=== PATIENT | female | born 1955 | race Caucasian/White ===

== ENCOUNTER 2020-09-05 12:16 | Inpatient (IN) | payer MEDICARE ==
[2020-09-05 16:56] LABS: BASO % 0.5 % (0-2.0); EOS % 1.7 % (0-4.5); HEMATOCRIT 39.4 % (32.4-45.2); HEMOGLOBIN 13.3 GM/dL (10.7-15.3); LYMPH % 28.7 % (8-40); MCH 31.3 pg (25.7-33.7); MCHC 33.8 g/dl (32.0-36.0); MEAN CELL VOLUME 92.5 fl (80-96); MEAN PLT VOLUME 10.6 fl (7.5-11.1); MONO % 3.8 % (3.8-10.2); NEUT % 65.3 % (42.8-82.8); PLATELET COUNT 210 K/MM3 (134-434); RBC 4.26 M/mm3 (3.60-5.2); RDW 13.7 % (11.6-15.6); WHITE BLOOD COUNT 10.8 K/mm3 (4.0-10.0)
[2020-09-05 17:18] LABS: CALCIUM 9.8 mg/dL (8.5-10.1)
[2020-09-05 17:19] LABS: ALBUMIN 3.6 g/dl (3.4-5.0); BLOOD UREA NITROGEN 52.4 mg/dL (7-18)
[2020-09-05 17:22] LABS: CREATININE 1.8 mg/dL (0.55-1.3)
[2020-09-05 17:23] LABS: BILIRUBIN,TOTAL 0.3 mg/dL (0.2-1); TOT PROT 9.6 g/dl (6.4-8.2)
[2020-09-05] MEDS ORDERED: LACTATED RINGERS SOLUTION 1000 ML INFUS.BAG IV ONE (19:26)
[2020-09-05 20:04] LABS: EPI CELLS 16 /uL (0-25.1); HYALINE CASTS 3 /uL (0-3.1); URINE APPEARANCE CLOUDY; URINE BACTERIA 105 /uL (0-1359); URINE BILIRUBIN NEGATIVE (NEGATIVE); URINE COLOR YELLOW; URINE GLUCOSE (UA) NEGATIVE (NEGATIVE); URINE KETONE NEGATIVE (NEGATIVE); URINE LEUK ESTERASE 2+ (NEGATIVE); URINE NITRITE NEGATIVE (NEGATIVE); URINE PROTEIN 2+ (NEGATIVE); URINE RBC 14 /uL (0-23.9); URINE UROBILINOGEN 0.2 mg/dL (0.2-1.0); URINE WBC 369 /uL (0-25.8)
[2020-09-06] MEDS ORDERED: CEFTRIAXONE 1 GM in DEXTROSE 5%-WATER - 50 ML IVPB ONE (00:43)
[2020-09-06] MEDS ORDERED: CEFTRIAXONE 1 GM/50 ML BAG ONE ×2 (01:03→09:53)
[2020-09-06 06:51] LABS: BASO % 0.4 % (0-2.0); EOS % 1.6 % (0-4.5); HEMATOCRIT 35.9 % (32.4-45.2); HEMOGLOBIN 12.2 GM/dL (10.7-15.3); LYMPH % 31.3 % (8-40); MCH 31.3 pg (25.7-33.7); MEAN CELL VOLUME 92.1 fl (80-96); MEAN PLT VOLUME 10.1 fl (7.5-11.1); MONO % 4.8 % (3.8-10.2); NEUT % 61.9 % (42.8-82.8); PLATELET COUNT 195 K/MM3 (134-434); RDW 13.7 % (11.6-15.6); WHITE BLOOD COUNT 7.6 K/mm3 (4.0-10.0)
[2020-09-06 07:15] LABS: ALBUMIN 3.1 g/dl (3.4-5.0); BLOOD UREA NITROGEN 46.2 mg/dL (7-18); CALCIUM 9.3 mg/dL (8.5-10.1)
[2020-09-06 07:18] LABS: CREATININE 1.6 mg/dL (0.55-1.3)
[2020-09-06 07:20] LABS: BILIRUBIN,TOTAL 0.4 mg/dL (0.2-1); TOT PROT 8.3 g/dl (6.4-8.2)
[2020-09-06] MEDS ORDERED: HEPARIN NA (PORCINE) 5,000 UNITS/ML 1ML VIAL ONE (09:53)
[2020-09-06] MEDS: HEPARIN NA (PORCINE) 5,000 UNITS/ML 1ML VIAL SQ SCH ×2 (12:00→23:03)
[2020-09-06] MEDS: INSULIN SLIDING SCALE (NOVOLOG) 1 VIAL SQ SCH ×3 (13:13→23:12)
[2020-09-06] MEDS ORDERED: FLU VACCINE (FLULAVAL) PF 60 MCG/0.5 ML SYRINGE 2020-2021 IM ONE (20:45)
[2020-09-06 21:13] VITALS: BMI 40.5
[2020-09-06] MEDS: INSULIN (LEVEMIR) 100 UNITS/ML UNITS SQ SCH (23:13)
[2020-09-07] MEDS ORDERED: INSULIN (NOVOLOG) ASPART 100 UNITS/ML 10ML VIAL ONE (06:30)
[2020-09-07] MEDS: INSULIN SLIDING SCALE (NOVOLOG) 1 VIAL SQ SCH ×4 (06:38→21:41)
[2020-09-07 07:39] LABS: BASO % 0.8 % (0-2.0); EOS % 2.3 % (0-4.5); HEMATOCRIT 36.3 % (32.4-45.2); HEMOGLOBIN 12.2 GM/dL (10.7-15.3); LYMPH % 37.7 % (8-40); MCH 31.2 pg (25.7-33.7); MCHC 33.6 g/dl (32.0-36.0); MEAN CELL VOLUME 92.9 fl (80-96); MEAN PLT VOLUME 10.6 fl (7.5-11.1); MONO % 5.4 % (3.8-10.2); NEUT % 53.8 % (42.8-82.8); PLATELET COUNT 173 K/MM3 (134-434); RBC 3.91 M/mm3 (3.60-5.2); RDW 13.6 % (11.6-15.6); WHITE BLOOD COUNT 6.2 K/mm3 (4.0-10.0)
[2020-09-07 07:56] LABS: CALCIUM 9.3 mg/dL (8.5-10.1)
[2020-09-07 07:57] LABS: ALBUMIN 3.2 g/dl (3.4-5.0); BLOOD UREA NITROGEN 34.6 mg/dL (7-18)
[2020-09-07 08:00] LABS: CREATININE 1.4 mg/dL (0.55-1.3)
[2020-09-07 08:01] LABS: BILIRUBIN,TOTAL 0.6 mg/dL (0.2-1); TOT PROT 8.5 g/dl (6.4-8.2)
[2020-09-07] MEDS ORDERED: FLU VACCINE (FLULAVAL) PF 60 MCG/0.5 ML SYRINGE 2020-2021 IM ONE (10:00)
[2020-09-07] MEDS ORDERED: cefTRIAXone SODIUM 1 GM VIAL ONE (10:04)
[2020-09-07] MEDS ORDERED: DEXTROSE 5%-WATER - 50 ML IVPB ONE (10:04)
[2020-09-07] MEDS ORDERED: INSULIN (LEVEMIR) 100 UNITS/ML UNITS SQ ONE (10:25)
[2020-09-07] MEDS: CEFTRIAXONE 1 GM in DEXTROSE 5%-WATER - 50 ML IVPB SCH (10:51)
[2020-09-07] MEDS: INSULIN (LEVEMIR) 100 UNITS/ML UNITS SQ SCH ×2 (10:51→21:44)
[2020-09-07] MEDS: COLLAGENASE CLOSTRIDIUM HIST. 30 GRAMS TUBE TP SCH (10:52)
[2020-09-07] MEDS: HEPARIN NA (PORCINE) 5,000 UNITS/ML 1ML VIAL SQ SCH ×2 (10:52→21:42)
[2020-09-08] MEDS: INSULIN SLIDING SCALE (NOVOLOG) 1 VIAL SQ SCH ×4 (06:09→22:11)
[2020-09-08] MEDS ORDERED: DEXTROSE 5%-WATER - 50 ML IVPB ONE (09:41)
[2020-09-08] MEDS ORDERED: cefTRIAXone SODIUM 1 GM VIAL ONE (09:41)
[2020-09-08] MEDS: CEFTRIAXONE 1 GM in DEXTROSE 5%-WATER - 50 ML IVPB SCH (10:20)
[2020-09-08] MEDS: INSULIN (LEVEMIR) 100 UNITS/ML UNITS SQ SCH ×2 (10:21→22:14)
[2020-09-08] MEDS: HEPARIN NA (PORCINE) 5,000 UNITS/ML 1ML VIAL SQ SCH ×2 (10:21→22:11)
[2020-09-08] MEDS ORDERED: INSULIN (NOVOLOG) ASPART 100 UNITS/ML 10ML VIAL SQ ONE (12:45)
[2020-09-08] MEDS ORDERED: MINERAL OIL ENEMA 133 ML ENEMA RC ONE (14:30)
[2020-09-08] MEDS: COLLAGENASE CLOSTRIDIUM HIST. 30 GRAMS TUBE TP SCH (14:43)
[2020-09-08] MEDS ORDERED: LACTULOSE 20 GM/30 ML UDC (FOR ORAL USE ONLY) PO ONE (15:48)
[2020-09-08] MEDS: ACETAMINOPHEN 325 MG TABLET (FP) PO PRN (22:10)
[2020-09-08] MEDS: DOCUSATE SODIUM 100 MG CAPSULE (FP) PO SCH (22:10)
[2020-09-09] MEDS: INSULIN SLIDING SCALE (NOVOLOG) 1 VIAL SQ SCH ×5 (06:09→22:46)
[2020-09-09] MEDS: DOCUSATE SODIUM 100 MG CAPSULE (FP) PO SCH ×4 (06:10→22:48)
[2020-09-09 07:45] LABS: INR 1.03 (0.83-1.09); PROTHROMBIN TIME (PATIENT) 12.5 SEC (9.7-13.0)
[2020-09-09 08:25] LABS: ALBUMIN 3.2 g/dl (3.4-5.0); BLOOD UREA NITROGEN 31.6 mg/dL (7-18); CALCIUM 9.4 mg/dL (8.5-10.1)
[2020-09-09 08:29] LABS: BILIRUBIN,TOTAL 0.6 mg/dL (0.2-1); CREATININE 1.4 mg/dL (0.55-1.3); TOT PROT 8.4 g/dl (6.4-8.2)
[2020-09-09] MEDS: HEPARIN NA (PORCINE) 5,000 UNITS/ML 1ML VIAL SQ SCH ×2 (10:00→22:48)
[2020-09-09] MEDS: INSULIN (LEVEMIR) 100 UNITS/ML UNITS SQ SCH ×2 (10:00→22:47)
[2020-09-09] MEDS: COLLAGENASE CLOSTRIDIUM HIST. 30 GRAMS TUBE TP SCH (10:00)
[2020-09-09] MEDS: ACETAMINOPHEN 325 MG TABLET (FP) PO PRN ×2 (10:00→18:47)
[2020-09-09] MEDS ORDERED: MINERAL OIL ENEMA 133 ML ENEMA RC ONE (13:29)
[2020-09-09] MEDS ORDERED: MINERAL OIL ENEMA 133 ML ENEMA PR ONE (16:37)
[2020-09-09] MEDS ORDERED: LACTULOSE 20 GM/30 ML UDC (FOR ORAL USE ONLY) PO ONE (16:37)
[2020-09-09] MEDS: SENNOSIDES 8.6MG TABLET (FP) PO SCH (22:48)
[2020-09-10] MEDS: ACETAMINOPHEN 325 MG TABLET (FP) PO PRN (05:51)
[2020-09-10] MEDS: DOCUSATE SODIUM 100 MG CAPSULE (FP) PO SCH ×3 (05:51→21:01)
[2020-09-10] MEDS: INSULIN SLIDING SCALE (NOVOLOG) 1 VIAL SQ SCH ×4 (06:48→21:02)
[2020-09-10] MEDS ORDERED: INSULIN (NOVOLOG) ASPART 100 UNITS/ML 10ML VIAL ONE ×2 (06:54→11:45)
[2020-09-10] MEDS: INSULIN (LEVEMIR) 100 UNITS/ML UNITS SQ SCH ×2 (10:04→21:02)
[2020-09-10] MEDS: HEPARIN NA (PORCINE) 5,000 UNITS/ML 1ML VIAL SQ SCH ×2 (10:04→21:01)
[2020-09-10] MEDS: COLLAGENASE CLOSTRIDIUM HIST. 30 GRAMS TUBE TP SCH (18:07)
[2020-09-10] MEDS: SENNOSIDES 8.6MG TABLET (FP) PO SCH (21:01)
[2020-09-11] MEDS: INSULIN SLIDING SCALE (NOVOLOG) 1 VIAL SQ SCH ×4 (06:19→21:00)
[2020-09-11] MEDS: DOCUSATE SODIUM 100 MG CAPSULE (FP) PO SCH ×3 (06:19→21:00)
[2020-09-11 08:14] LABS: HEMATOCRIT 37.7 % (32.4-45.2); HEMOGLOBIN 12.5 GM/dL (10.7-15.3); MCHC 33.3 g/dl (32.0-36.0); MEAN PLT VOLUME 10.7 fl (7.5-11.1); PLATELET COUNT 180 K/MM3 (134-434); RBC 4.05 M/mm3 (3.60-5.2); WHITE BLOOD COUNT 7.6 K/mm3 (4.0-10.0)
[2020-09-11 08:16] LABS: ALBUMIN 3.1 g/dl (3.4-5.0); BLOOD UREA NITROGEN 39.4 mg/dL (7-18); CALCIUM 9.3 mg/dL (8.5-10.1)
[2020-09-11 08:19] LABS: CREATININE 1.8 mg/dL (0.55-1.3)
[2020-09-11 08:20] LABS: BILIRUBIN,TOTAL 0.6 mg/dL (0.2-1); TOT PROT 7.8 g/dl (6.4-8.2)
[2020-09-11] MEDS ORDERED: PT OWN MED DRAWER 7, Y5N ONE (09:29)
[2020-09-11] MEDS: INSULIN (LEVEMIR) 100 UNITS/ML UNITS SQ SCH ×2 (10:05→21:00)
[2020-09-11] MEDS: HEPARIN NA (PORCINE) 5,000 UNITS/ML 1ML VIAL SQ SCH ×2 (10:05→21:00)
[2020-09-11] MEDS: COLLAGENASE CLOSTRIDIUM HIST. 30 GRAMS TUBE TP SCH (11:43)
[2020-09-11] MEDS: SENNOSIDES 8.6MG TABLET (FP) PO SCH (21:00)
[2020-09-12] MEDS: DOCUSATE SODIUM 100 MG CAPSULE (FP) PO SCH ×3 (05:26→21:26)
[2020-09-12] MEDS: INSULIN SLIDING SCALE (NOVOLOG) 1 VIAL SQ SCH ×4 (06:01→21:28)
[2020-09-12 07:42] LABS: HEMATOCRIT 37.1 % (32.4-45.2); HEMOGLOBIN 12.6 GM/dL (10.7-15.3); MCH 31.4 pg (25.7-33.7); MCHC 33.8 g/dl (32.0-36.0); MEAN CELL VOLUME 92.9 fl (80-96); RDW 14.1 % (11.6-15.6); WHITE BLOOD COUNT 9.1 K/mm3 (4.0-10.0)
[2020-09-12 08:15] LABS: CALCIUM 9.4 mg/dL (8.5-10.1)
[2020-09-12 08:17] LABS: ALBUMIN 3.2 g/dl (3.4-5.0); BLOOD UREA NITROGEN 45.1 mg/dL (7-18)
[2020-09-12 08:21] LABS: BILIRUBIN,TOTAL 0.9 mg/dL (0.2-1); TOT PROT 8.3 g/dl (6.4-8.2)
[2020-09-12] MEDS ORDERED: INSULIN (NOVOLOG) ASPART 100 UNITS/ML 10ML VIAL ONE (08:21)
[2020-09-12] MEDS: HEPARIN NA (PORCINE) 5,000 UNITS/ML 1ML VIAL SQ SCH ×2 (09:04→21:27)
[2020-09-12] MEDS: COLLAGENASE CLOSTRIDIUM HIST. 30 GRAMS TUBE TP SCH (09:07)
[2020-09-12] MEDS: INSULIN (LEVEMIR) 100 UNITS/ML UNITS SQ SCH ×2 (09:07→21:27)
[2020-09-12 09:51] LABS: MEAN PLT VOLUME 10.8 fl (7.5-11.1); PLATELET COUNT 196 K/MM3 (134-434)
[2020-09-12] MEDS ORDERED: LISINOPRIL 5 MG TABLET PO SCH (10:00)
[2020-09-12] MEDS ORDERED: CEFTRIAXONE 2 GM-D5W BAG 2 GM/50 ML BAG IVPB SCH (16:15)
[2020-09-12] MEDS ORDERED: CEFTRIAXONE 2 GM in DEXTROSE 5%-WATER 2 GM/100 ML BAG IVPB SCH (16:56)
[2020-09-12] MEDS ORDERED: DEXTROSE 5%-WATER 100 ML IVPB ONE (16:59)
[2020-09-12] MEDS: CEFTRIAXONE 2 GM in DEXTROSE 5%-WATER 2 GM/100 ML BAG IVPB SCH (17:06)
[2020-09-12] MEDS: SENNOSIDES 8.6MG TABLET (FP) PO SCH (21:26)
[2020-09-13] MEDS: DOCUSATE SODIUM 100 MG CAPSULE (FP) PO SCH ×2 (06:19→13:44)
[2020-09-13] MEDS: INSULIN SLIDING SCALE (NOVOLOG) 1 VIAL SQ SCH ×3 (06:19→16:33)
[2020-09-13 07:55] LABS: ALBUMIN 2.9 g/dl (3.4-5.0); BLOOD UREA NITROGEN 42.1 mg/dL (7-18); CALCIUM 9.3 mg/dL (8.5-10.1)
[2020-09-13 07:58] LABS: CREATININE 1.9 mg/dL (0.55-1.3)
[2020-09-13 08:00] LABS: BILIRUBIN,TOTAL 0.3 mg/dL (0.2-1); TOT PROT 7.9 g/dl (6.4-8.2)
[2020-09-13] MEDS ORDERED: DEXTROSE 5%-WATER 100 ML IVPB ONE (08:23)
[2020-09-13] MEDS ORDERED: INSULIN (NOVOLOG) ASPART 100 UNITS/ML 10ML VIAL ONE (08:30)
[2020-09-13] MEDS: CEFTRIAXONE 2 GM in DEXTROSE 5%-WATER 2 GM/100 ML BAG IVPB SCH (09:00)
[2020-09-13] MEDS: COLLAGENASE CLOSTRIDIUM HIST. 30 GRAMS TUBE TP SCH (09:01)
[2020-09-13] MEDS: INSULIN (LEVEMIR) 100 UNITS/ML UNITS SQ SCH (09:01)
[2020-09-13] MEDS: HEPARIN NA (PORCINE) 5,000 UNITS/ML 1ML VIAL SQ SCH (09:02)
[2020-09-13 13:24] VITALS: BP 104/66; PULSE 70; TEMP 97.3
== END 2020-09-13 18:17 | disposition home or self-care (01) | DRG 344 ==
LOC: JER 12:16 → JERBED 19:58 → J7W 09-06 18:16
PROVIDERS: ADMIT Internal Medicine; ATTEND Family Medicine
PROC: 02HV33Z Insertion of Infusion Device into Superior Vena Cava, Percutaneous Approach (ICD-10-PCS; principal; 2020-09-13)
PROC: B518ZZA Fluoroscopy of Superior Vena Cava, Guidance (ICD-10-PCS; 2020-09-13)
DX: E11.69 Type 2 diabetes mellitus with other specified complication (principal); E11.621 Type 2 diabetes mellitus with foot ulcer; L97.528 Non-pressure chronic ulcer of other part of left foot with other specified severity; L97.518 Non-pressure chronic ulcer of other part of right foot with other specified severity; N39.0 Urinary tract infection, site not specified; E11.22 Type 2 diabetes mellitus with diabetic chronic kidney disease; N18.9 Chronic kidney disease, unspecified; I12.9 Hypertensive chronic kidney disease with stage 1 through stage 4 chronic kidney disease, or unspecified chronic kidney disease; N17.9 Acute kidney failure, unspecified; E11.610 Type 2 diabetes mellitus with diabetic neuropathic arthropathy; E66.01 Morbid (severe) obesity due to excess calories; Z68.41 Body mass index [BMI] 40.0-44.9, adult; L08.9 Local infection of the skin and subcutaneous tissue, unspecified; M86.8X7 Other osteomyelitis, ankle and foot; B95.2 Enterococcus as the cause of diseases classified elsewhere; Z89.422 Acquired absence of other left toe(s); Z89.421 Acquired absence of other right toe(s); K59.00 Constipation, unspecified; L03.90 Cellulitis, unspecified; M86.171 Other acute osteomyelitis, right ankle and foot
CPT/HCPCS: 36415; 36558; 71045-TC-FY; 73630-TC-LT; 73630-TC-RT-FY; 73718-TC-LT; 73718-TC-RT; 76775-TC; 80048; 80053; 81003; 82962; 83036; 84155; 84165; 85025; 85027; 85610; 85651; 86038; 86140; 86704; 86803; 87040; 87086; 87186; 87340; 93970-TC; 97116-GP; 97161-GP; 99285-25; C9803; G0008; J1644; Q2036; U0003

== ENCOUNTER 2020-09-14 11:47 | Day surgery (SDC) | payer SELFPAY ==
[2020-09-14] MEDS ORDERED: CEFTRIAXONE 2 GM in DEXTROSE 5%-WATER 100 ML IVPB ONE (12:15)
[2020-09-14] MEDS ORDERED: DEXTROSE 5%-WATER 100 ML IVPB ONE (12:22)
[2020-09-14 13:18] VITALS: BP 140/70; PULSE 70; TEMP 97.8
== END 2020-09-14 14:15 | disposition home or self-care (01) ==
LOC: JINFUSION 11:47 → J7W 11:56 → JINFUSION 14:15
PROVIDERS: ATTEND Internal Medicine
DX: E11.621 Type 2 diabetes mellitus with foot ulcer (principal); L03.90 Cellulitis, unspecified; L97.509 Non-pressure chronic ulcer of other part of unspecified foot with unspecified severity
CPT/HCPCS: 96365

== ENCOUNTER 2020-09-15 11:08 | Day surgery (SDC) | payer SELFPAY ==
[~2020-09-15 11:08] MED LIST: CEFTRIAXONE 2 GM in DEXTROSE 5%-WATER 100 ML IVPB ONE
[2020-09-15] MEDS ORDERED: DEXTROSE 5%-WATER 100 ML IVPB ONE (11:28)
[2020-09-15 11:48] VITALS: TEMP 98.2
[2020-09-15 11:59] VITALS: BP 126/60; PULSE 78
== END 2020-09-15 12:37 | disposition home or self-care (01) ==
LOC: JINFUSION 11:08 → J7W 11:08 → JINFUSION 12:37
PROVIDERS: ATTEND Internal Medicine
DX: E11.621 Type 2 diabetes mellitus with foot ulcer (principal); L03.90 Cellulitis, unspecified; L97.509 Non-pressure chronic ulcer of other part of unspecified foot with unspecified severity
CPT/HCPCS: 96365

== ENCOUNTER 2020-09-16 11:24 | Day surgery (SDC) | payer SELFPAY ==
[2020-09-16] MEDS ORDERED: DEXTROSE 5%-WATER 100 ML IVPB ONE (12:01)
[2020-09-16 17:01] VITALS: BP 109/60; PULSE 75; TEMP 97.6
== END 2020-09-16 12:55 | disposition home or self-care (01) ==
LOC: J7W 11:24 → JINFUSION 11:24
PROVIDERS: ATTEND Internal Medicine
DX: E11.621 Type 2 diabetes mellitus with foot ulcer (principal); L03.90 Cellulitis, unspecified; L97.509 Non-pressure chronic ulcer of other part of unspecified foot with unspecified severity
CPT/HCPCS: 96365

== ENCOUNTER 2020-09-17 11:04 | Day surgery (SDC) | payer SELFPAY ==
[2020-09-17] MEDS ORDERED: DEXTROSE 5%-WATER 100 ML IVPB ONE (11:37)
[2020-09-17] MEDS ORDERED: CEFTRIAXONE 2 GM in DEXTROSE 5%-WATER 100 ML IVPB ONE (12:00)
[2020-09-17 12:12] VITALS: BP 111/60; PULSE 71; TEMP 98
== END 2020-09-17 16:44 | disposition home or self-care (01) ==
LOC: J7W 11:04 → JINFUSION 11:04
PROVIDERS: ATTEND Internal Medicine
DX: E11.621 Type 2 diabetes mellitus with foot ulcer (principal); L03.90 Cellulitis, unspecified; L97.509 Non-pressure chronic ulcer of other part of unspecified foot with unspecified severity
CPT/HCPCS: 96365

== ENCOUNTER 2020-09-18 11:14 | Day surgery (SDC) | payer SELFPAY ==
[2020-09-18 11:28] VITALS: PULSE 74; TEMP 97.7
[2020-09-18] MEDS ORDERED: DEXTROSE 5%-WATER 100 ML IVPB ONE (11:29)
[2020-09-18] MEDS ORDERED: CEFTRIAXONE 2 GM in DEXTROSE 5%-WATER 100 ML IVPB ONE (11:30)
[2020-09-18 12:12] VITALS: BP 143/76
== END 2020-09-18 12:14 | disposition home or self-care (01) ==
LOC: JINFUSION 11:14 → J7W 11:15 → JINFUSION 12:14
PROVIDERS: ATTEND Internal Medicine
DX: E11.621 Type 2 diabetes mellitus with foot ulcer (principal); L03.90 Cellulitis, unspecified; L97.509 Non-pressure chronic ulcer of other part of unspecified foot with unspecified severity
CPT/HCPCS: 96365

== ENCOUNTER 2020-09-19 11:06 | Day surgery (SDC) | payer SELFPAY ==
[2020-09-19] MEDS ORDERED: DEXTROSE 5%-WATER 100 ML IVPB ONE (11:12)
[2020-09-19 15:04] VITALS: BP 156/78; PULSE 80; TEMP 98.1
== END 2020-09-19 12:00 | disposition home or self-care (01) ==
LOC: J7W 11:06 → JINFUSION 11:06
PROVIDERS: ATTEND Internal Medicine
DX: E11.621 Type 2 diabetes mellitus with foot ulcer (principal); L03.90 Cellulitis, unspecified; L97.509 Non-pressure chronic ulcer of other part of unspecified foot with unspecified severity
CPT/HCPCS: 96365

== ENCOUNTER 2020-09-20 11:27 | Day surgery (SDC) | payer SELFPAY ==
[2020-09-20] MEDS ORDERED: DEXTROSE 5%-WATER 100 ML IVPB ONE (11:36)
[2020-09-20 12:17] LABS: HEMATOCRIT 35.4 % (32.4-45.2); HEMOGLOBIN 12.1 GM/dL (10.7-15.3); MCH 31.8 pg (25.7-33.7); MCHC 34.3 g/dl (32.0-36.0); MEAN CELL VOLUME 92.8 fl (80-96); MEAN PLT VOLUME 10.1 fl (7.5-11.1); PLATELET COUNT 198 K/MM3 (134-434); RBC 3.82 M/mm3 (3.60-5.2); RDW 14.1 % (11.6-15.6); WHITE BLOOD COUNT 8.5 K/mm3 (4.0-10.0)
[2020-09-20 13:02] VITALS: BP 140/71; PULSE 80; TEMP 98
[2020-09-20 13:11] LABS: POTASSIUM 5.1 mmol/L (3.5-5.1)
[2020-09-20 13:13] LABS: ALBUMIN 3.4 g/dl (3.4-5.0); BLOOD UREA NITROGEN 24.1 mg/dL (7-18); CALCIUM 9.1 mg/dL (8.5-10.1)
[2020-09-20 13:16] LABS: CREATININE 1.4 mg/dL (0.55-1.3)
[2020-09-20 13:18] LABS: BILIRUBIN,TOTAL 0.3 mg/dL (0.2-1); TOT PROT 8.5 g/dl (6.4-8.2)
== END 2020-09-20 13:35 | disposition home or self-care (01) ==
LOC: JINFUSION 11:27 → J7W 11:27 → JINFUSION 13:35
PROVIDERS: ATTEND Internal Medicine
DX: E11.621 Type 2 diabetes mellitus with foot ulcer (principal); L03.90 Cellulitis, unspecified; L97.509 Non-pressure chronic ulcer of other part of unspecified foot with unspecified severity
CPT/HCPCS: 36415; 80053; 85027; 96365

== ENCOUNTER 2020-09-21 10:59 | Day surgery (SDC) | payer SELFPAY ==
[2020-09-21] MEDS ORDERED: CEFTRIAXONE 2 GM in DEXTROSE 5%-WATER 100 ML IVPB ONE (11:30)
[2020-09-21] MEDS ORDERED: DEXTROSE 5%-WATER 100 ML IVPB ONE (11:32)
== END 2020-09-21 13:22 | disposition home or self-care (01) ==
LOC: JINFUSION 10:59 → J7W 10:59 → JINFUSION 13:22
PROVIDERS: ATTEND Internal Medicine
DX: E11.621 Type 2 diabetes mellitus with foot ulcer (principal); L03.90 Cellulitis, unspecified; L97.509 Non-pressure chronic ulcer of other part of unspecified foot with unspecified severity
CPT/HCPCS: 96365

== ENCOUNTER 2020-09-21 13:13 | Emergency (ER) | payer SELFPAY ==
[2020-09-21 13:21] VITALS: TEMP 97.6; BMI 37.5
[2020-09-21] MEDS ORDERED: CEFTRIAXONE 1 GM in DEXTROSE 5%-WATER - 50 ML IVPB ONE (13:36)
[2020-09-21] MEDS ORDERED: CEFTRIAXONE 1 GM/50 ML BAG ONE (13:42)
[2020-09-21] MEDS ORDERED: ALTEPLASE 2 MG VIAL IVPUSH ONE (13:42)
[2020-09-21] MEDS ORDERED: ALTEPLASE 2 MG VIAL ONE (14:14)
[2020-09-21 16:54] VITALS: BP 135/75; PULSE 80
== END 2020-09-21 16:54 | disposition home or self-care (01) ==
LOC: JER 13:13
DX: T82.49XA Other complication of vascular dialysis catheter, initial encounter (principal)
CPT/HCPCS: 36581; 99284-25

== ENCOUNTER 2020-09-22 11:17 | Day surgery (SDC) | payer SELFPAY ==
[2020-09-22] MEDS ORDERED: DEXTROSE 5%-WATER 100 ML IVPB ONE (11:24)
[2020-09-22] MEDS ORDERED: CEFTRIAXONE 2 GM in DEXTROSE 5%-WATER 100 ML IVPB ONE (11:45)
[2020-09-22 12:27] VITALS: BP 122/72; PULSE 73; TEMP 98.3
== END 2020-09-22 12:00 | disposition home or self-care (01) ==
LOC: JINFUSION 11:17 → J7W 11:17 → JINFUSION 12:00
PROVIDERS: ATTEND Internal Medicine
DX: E11.621 Type 2 diabetes mellitus with foot ulcer (principal); L03.90 Cellulitis, unspecified; L97.509 Non-pressure chronic ulcer of other part of unspecified foot with unspecified severity
CPT/HCPCS: 96365

== ENCOUNTER 2020-09-23 11:16 | Day surgery (SDC) | payer SELFPAY ==
[2020-09-23] MEDS ORDERED: DEXTROSE 5%-WATER 100 ML IVPB ONE (11:43)
[2020-09-23] MEDS ORDERED: CEFTRIAXONE 2 GM in DEXTROSE 5%-WATER 100 ML IVPB ONE (11:45)
[2020-09-23 11:52] VITALS: BP 121/64; PULSE 76; TEMP 98.2
== END 2020-09-23 12:15 | disposition home or self-care (01) ==
LOC: JINFUSION 11:16 → J7W 11:17 → JINFUSION 12:15
PROVIDERS: ATTEND Internal Medicine
DX: E11.621 Type 2 diabetes mellitus with foot ulcer (principal); L03.90 Cellulitis, unspecified; L97.509 Non-pressure chronic ulcer of other part of unspecified foot with unspecified severity
CPT/HCPCS: 96365

== ENCOUNTER 2020-09-24 11:00 | Day surgery (SDC) | payer SELFPAY ==
[2020-09-24] MEDS ORDERED: CEFTRIAXONE 2 GM in DEXTROSE 5%-WATER 100 ML IVPB ONE (11:30)
[2020-09-24] MEDS ORDERED: DEXTROSE 5%-WATER 100 ML IVPB ONE (11:32)
[2020-09-24 12:25] VITALS: BP 140/79; PULSE 78; TEMP 98
== END 2020-09-24 12:29 | disposition home or self-care (01) ==
LOC: JINFUSION 11:00 → J7W 11:00 → JINFUSION 12:29
PROVIDERS: ATTEND Internal Medicine
DX: E11.621 Type 2 diabetes mellitus with foot ulcer (principal); L03.90 Cellulitis, unspecified; L97.509 Non-pressure chronic ulcer of other part of unspecified foot with unspecified severity
CPT/HCPCS: 96365

== ENCOUNTER 2020-09-25 11:26 | Day surgery (SDC) | payer SELFPAY ==
[2020-09-25] MEDS ORDERED: DEXTROSE 5%-WATER 100 ML IVPB ONE (11:59)
[2020-09-25] MEDS ORDERED: CEFTRIAXONE 2 GM in DEXTROSE 5%-WATER 100 ML IVPB ONE (12:00)
[2020-09-25 12:10] VITALS: BP 127/71; PULSE 78; TEMP 97.6
== END 2020-09-25 12:45 | disposition home or self-care (01) ==
LOC: JINFUSION 11:26 → J7W 11:45 → JINFUSION 12:45
PROVIDERS: ATTEND Internal Medicine
DX: E11.621 Type 2 diabetes mellitus with foot ulcer (principal); L03.90 Cellulitis, unspecified; L97.509 Non-pressure chronic ulcer of other part of unspecified foot with unspecified severity
CPT/HCPCS: 96365

== ENCOUNTER 2020-09-26 11:28 | Day surgery (SDC) | payer SELFPAY ==
[2020-09-26] MEDS ORDERED: DEXTROSE 5%-WATER 100 ML IVPB ONE (11:38)
[2020-09-26 12:14] VITALS: BP 118/51; PULSE 87; TEMP 97.6
== END 2020-09-26 12:15 | disposition home or self-care (01) ==
LOC: JINFUSION 11:28 → J7W 11:29 → JINFUSION 12:15
PROVIDERS: ATTEND Internal Medicine
DX: E11.621 Type 2 diabetes mellitus with foot ulcer (principal); L03.90 Cellulitis, unspecified; L97.509 Non-pressure chronic ulcer of other part of unspecified foot with unspecified severity
CPT/HCPCS: 96365

== ENCOUNTER 2020-09-27 11:07 | Day surgery (SDC) | payer SELFPAY ==
[2020-09-27] MEDS ORDERED: DEXTROSE 5%-WATER 100 ML IVPB ONE (11:39)
[2020-09-27 11:52] VITALS: BP 120/69; PULSE 79; TEMP 98.3
[2020-09-27 12:05] LABS: HEMATOCRIT 34.8 % (32.4-45.2); HEMOGLOBIN 11.5 GM/dL (10.7-15.3); MCH 31.2 pg (25.7-33.7); MCHC 33.1 g/dl (32.0-36.0); MEAN CELL VOLUME 94.3 fl (80-96); MEAN PLT VOLUME 10.3 fl (7.5-11.1); PLATELET COUNT 164 K/MM3 (134-434); RDW 14.2 % (11.6-15.6); WHITE BLOOD COUNT 6.6 K/mm3 (4.0-10.0)
[2020-09-27 12:28] LABS: POTASSIUM 4.9 mmol/L (3.5-5.1)
[2020-09-27 12:30] LABS: ALBUMIN 3.5 g/dl (3.4-5.0); CALCIUM 9.3 mg/dL (8.5-10.1)
[2020-09-27 12:31] LABS: BLOOD UREA NITROGEN 39.8 mg/dL (7-18)
[2020-09-27 12:34] LABS: CREATININE 1.9 mg/dL (0.55-1.3)
[2020-09-27 12:35] LABS: BILIRUBIN,TOTAL 0.4 mg/dL (0.2-1); TOT PROT 8.6 g/dl (6.4-8.2)
== END 2020-09-27 12:49 | disposition home or self-care (01) ==
LOC: JINFUSION 11:07 → J7W 11:07 → JINFUSION 12:49
PROVIDERS: ATTEND Internal Medicine
DX: E11.621 Type 2 diabetes mellitus with foot ulcer (principal); L03.90 Cellulitis, unspecified; L97.509 Non-pressure chronic ulcer of other part of unspecified foot with unspecified severity
CPT/HCPCS: 36415; 80053; 85027; 96365

== ENCOUNTER 2020-09-28 11:33 | Day surgery (SDC) | payer SELFPAY ==
[2020-09-28] MEDS ORDERED: DEXTROSE 5%-WATER 100 ML IVPB ONE (11:43)
[2020-09-28 11:59] VITALS: TEMP 97.9
[2020-09-28 12:47] VITALS: BP 138/76; PULSE 82
== END 2020-09-28 12:48 | disposition home or self-care (01) ==
LOC: J7W 11:33 → JINFUSION 11:33
PROVIDERS: ATTEND Internal Medicine
DX: E11.621 Type 2 diabetes mellitus with foot ulcer (principal); L03.90 Cellulitis, unspecified; L97.509 Non-pressure chronic ulcer of other part of unspecified foot with unspecified severity
CPT/HCPCS: 96365

== ENCOUNTER 2020-09-29 10:58 | Day surgery (SDC) | payer SELFPAY ==
[2020-09-29 11:57] VITALS: TEMP 97.6
[2020-09-29 12:39] VITALS: BP 148/76; PULSE 82
== END 2020-09-29 12:40 | disposition home or self-care (01) ==
LOC: JINFUSION 10:58 → J7W 10:59 → JINFUSION 12:40
PROVIDERS: ATTEND Internal Medicine
CPT/HCPCS: 96365

== ENCOUNTER 2020-09-30 11:29 | Day surgery (SDC) | payer SELFPAY ==
[2020-09-30] MEDS ORDERED: DEXTROSE 5%-WATER 100 ML IVPB ONE (11:45)
[2020-09-30 12:27] VITALS: BP 140/85; PULSE 78; TEMP 97.6
== END 2020-09-30 12:55 | disposition home or self-care (01) ==
LOC: JINFUSION 11:29 → J7W 11:30 → JINFUSION 11:30 → J7W 12:57
PROVIDERS: ATTEND Internal Medicine
DX: E11.621 Type 2 diabetes mellitus with foot ulcer (principal); L97.509 Non-pressure chronic ulcer of other part of unspecified foot with unspecified severity
CPT/HCPCS: 96365

== ENCOUNTER 2020-10-01 11:26 | Day surgery (SDC) | payer SELFPAY ==
[2020-10-01] MEDS ORDERED: CEFTRIAXONE 2 GM in DEXTROSE 5%-WATER 100 ML IVPB ONE (12:00)
[2020-10-01] MEDS ORDERED: DEXTROSE 5%-WATER 100 ML IVPB ONE (12:09)
[2020-10-01 14:00] VITALS: BP 137/72; PULSE 77; TEMP 97.6
== END 2020-10-01 14:11 | disposition home or self-care (01) ==
LOC: J7W 11:26 → JINFUSION 11:26
PROVIDERS: ATTEND Internal Medicine
DX: E11.621 Type 2 diabetes mellitus with foot ulcer (principal); L97.509 Non-pressure chronic ulcer of other part of unspecified foot with unspecified severity
CPT/HCPCS: 96365

== ENCOUNTER 2020-10-02 11:36 | Day surgery (SDC) | payer SELFPAY ==
[2020-10-02] MEDS ORDERED: DEXTROSE 5%-WATER 100 ML IVPB ONE (11:51)
[2020-10-02] MEDS ORDERED: CEFTRIAXONE 2 GM in DEXTROSE 5%-WATER 100 ML IVPB ONE (12:15)
[2020-10-02 12:53] VITALS: BP 124/70; PULSE 77; TEMP 98.1
== END 2020-10-02 12:45 | disposition home or self-care (01) ==
LOC: JINFUSION 11:36 → J7W 11:36 → JINFUSION 12:45
PROVIDERS: ATTEND Internal Medicine
DX: E11.621 Type 2 diabetes mellitus with foot ulcer (principal)
CPT/HCPCS: 96365

== ENCOUNTER 2020-10-03 11:09 | Day surgery (SDC) | payer SELFPAY ==
[2020-10-03] MEDS ORDERED: DEXTROSE 5%-WATER 100 ML IVPB ONE (11:11)
[2020-10-03 11:59] VITALS: BP 129/67; PULSE 80; TEMP 98.1
== END 2020-10-03 15:30 | disposition home or self-care (01) ==
LOC: JINFUSION 11:09 → J7W 11:09 → JINFUSION 15:30
PROVIDERS: ATTEND Internal Medicine
DX: E11.621 Type 2 diabetes mellitus with foot ulcer (principal); L97.509 Non-pressure chronic ulcer of other part of unspecified foot with unspecified severity
CPT/HCPCS: 96365

== ENCOUNTER 2020-10-04 09:25 | Day surgery (SDC) | payer SELFPAY ==
[2020-10-04] MEDS ORDERED: CEFTRIAXONE 2 GM in DEXTROSE 5%-WATER 100 ML IVPB ONE (09:30)
[2020-10-04] MEDS ORDERED: DEXTROSE 5%-WATER 100 ML IVPB ONE (12:41)
[2020-10-04 14:25] LABS: CALCIUM 9.6 mg/dL (8.5-10.1)
[2020-10-04 14:26] LABS: ALBUMIN 3.3 g/dl (3.4-5.0)
[2020-10-04 14:29] LABS: CREATININE 1.4 mg/dL (0.55-1.3)
[2020-10-04 14:31] LABS: BILIRUBIN,TOTAL 0.5 mg/dL (0.2-1); TOT PROT 8.5 g/dl (6.4-8.2)
[2020-10-04 15:19] LABS: HEMATOCRIT 34.8 % (32.4-45.2); HEMOGLOBIN 11.7 GM/dL (10.7-15.3); MCH 31.6 pg (25.7-33.7); MCHC 33.7 g/dl (32.0-36.0); MEAN CELL VOLUME 93.7 fl (80-96); MEAN PLT VOLUME 10.1 fl (7.5-11.1); PLATELET COUNT 195 K/MM3 (134-434); RBC 3.71 M/mm3 (3.60-5.2); RDW 14.3 % (11.6-15.6); WHITE BLOOD COUNT 7.5 K/mm3 (4.0-10.0)
[2020-10-04 15:36] VITALS: BP 134/78; PULSE 80; TEMP 98
== END 2020-10-04 13:30 | disposition home or self-care (01) ==
LOC: JINFUSION 09:25 → J7W 11:47 → JINFUSION 13:30
PROVIDERS: ATTEND Internal Medicine
DX: E11.621 Type 2 diabetes mellitus with foot ulcer (principal); L97.509 Non-pressure chronic ulcer of other part of unspecified foot with unspecified severity
CPT/HCPCS: 36415; 80053; 85027; 96365

== ENCOUNTER 2020-10-05 11:47 | Day surgery (SDC) | payer SELFPAY ==
[2020-10-05] MEDS ORDERED: DEXTROSE 5%-WATER 100 ML IVPB ONE (11:54)
[2020-10-05 12:05] VITALS: TEMP 98
[2020-10-05 14:04] VITALS: BP 127/86; PULSE 87
== END 2020-10-05 14:04 | disposition home or self-care (01) ==
LOC: J7W 11:47 → JINFUSION 11:47
PROVIDERS: ATTEND Internal Medicine
CPT/HCPCS: 96365

== ENCOUNTER 2020-10-06 11:43 | Day surgery (SDC) | payer SELFPAY ==
[2020-10-06] MEDS ORDERED: DEXTROSE 5%-WATER 100 ML IVPB ONE (11:47)
[2020-10-06 11:57] VITALS: PULSE 77; TEMP 98.8
[2020-10-06 12:11] VITALS: BP 150/66
== END 2020-10-06 12:24 | disposition home or self-care (01) ==
LOC: JINFUSION 11:43 → J7W 11:44 → JINFUSION 12:24
PROVIDERS: ATTEND Internal Medicine
DX: E11.621 Type 2 diabetes mellitus with foot ulcer (principal); L97.509 Non-pressure chronic ulcer of other part of unspecified foot with unspecified severity; Z79.4 Long term (current) use of insulin; E11.69 Type 2 diabetes mellitus with other specified complication; L08.9 Local infection of the skin and subcutaneous tissue, unspecified
CPT/HCPCS: 96365

== ENCOUNTER 2020-10-07 11:47 | Day surgery (SDC) | payer SELFPAY ==
[2020-10-07] MEDS ORDERED: DEXTROSE 5%-WATER 100 ML IVPB ONE (12:10)
[2020-10-07 12:25] VITALS: BP 124/65; PULSE 79; TEMP 98.3
== END 2020-10-07 13:20 | disposition home or self-care (01) ==
LOC: JINFUSION 11:47 → J7W 11:47 → JINFUSION 13:20
PROVIDERS: ATTEND Internal Medicine
DX: E11.621 Type 2 diabetes mellitus with foot ulcer (principal); L97.509 Non-pressure chronic ulcer of other part of unspecified foot with unspecified severity; Z79.4 Long term (current) use of insulin; E11.69 Type 2 diabetes mellitus with other specified complication; L08.9 Local infection of the skin and subcutaneous tissue, unspecified
CPT/HCPCS: 96365

== ENCOUNTER 2020-10-08 11:55 | Day surgery (SDC) | payer SELFPAY ==
[2020-10-08] MEDS ORDERED: CEFTRIAXONE 2 GM in DEXTROSE 5%-WATER 100 ML IVPB ONE (12:15)
[2020-10-08] MEDS ORDERED: DEXTROSE 5%-WATER 100 ML IVPB ONE (12:16)
[2020-10-08 12:23] VITALS: BP 131/70; PULSE 75; TEMP 97.8
== END 2020-10-08 13:24 | disposition home or self-care (01) ==
LOC: JINFUSION 11:55 → J7W 11:56 → JINFUSION 13:24
PROVIDERS: ATTEND Internal Medicine
DX: E11.621 Type 2 diabetes mellitus with foot ulcer (principal); L97.509 Non-pressure chronic ulcer of other part of unspecified foot with unspecified severity; Z79.4 Long term (current) use of insulin; E11.69 Type 2 diabetes mellitus with other specified complication; L08.9 Local infection of the skin and subcutaneous tissue, unspecified
CPT/HCPCS: 96365

== ENCOUNTER 2020-10-09 11:56 | Day surgery (SDC) | payer SELFPAY ==
[2020-10-09] MEDS ORDERED: DEXTROSE 5%-WATER 100 ML IVPB ONE (12:09)
[2020-10-09] MEDS ORDERED: CEFTRIAXONE 2 GM in DEXTROSE 5%-WATER 100 ML IVPB ONE (12:15)
[2020-10-09 12:25] VITALS: TEMP 98.7
[2020-10-09 12:45] VITALS: BP 129/67; PULSE 77
== END 2020-10-09 13:25 | disposition home or self-care (01) ==
LOC: JINFUSION 11:56 → J7W 11:56 → JINFUSION 13:25
PROVIDERS: ATTEND Internal Medicine
DX: E11.621 Type 2 diabetes mellitus with foot ulcer (principal); L97.509 Non-pressure chronic ulcer of other part of unspecified foot with unspecified severity; E11.69 Type 2 diabetes mellitus with other specified complication; L08.9 Local infection of the skin and subcutaneous tissue, unspecified; Z79.4 Long term (current) use of insulin
CPT/HCPCS: 96365

== ENCOUNTER 2020-10-10 11:54 | Day surgery (SDC) | payer SELFPAY ==
[2020-10-10] MEDS ORDERED: DEXTROSE 5%-WATER 100 ML IVPB ONE (12:04)
[2020-10-10 12:19] VITALS: TEMP 97.4
[2020-10-10 12:55] VITALS: BP 147/66; PULSE 72
== END 2020-10-10 12:57 | disposition home or self-care (01) ==
LOC: J7W 11:54 → JINFUSION 11:54
PROVIDERS: ATTEND Internal Medicine
DX: E11.621 Type 2 diabetes mellitus with foot ulcer (principal); L97.509 Non-pressure chronic ulcer of other part of unspecified foot with unspecified severity; E11.69 Type 2 diabetes mellitus with other specified complication; L08.9 Local infection of the skin and subcutaneous tissue, unspecified
CPT/HCPCS: 96365

== ENCOUNTER 2020-10-11 12:07 | Day surgery (SDC) | payer SELFPAY ==
[2020-10-11] MEDS ORDERED: DEXTROSE 5%-WATER 100 ML IVPB ONE (12:35)
[2020-10-11 13:21] VITALS: BP 145/78; PULSE 78; TEMP 97.7
[2020-10-11 13:28] LABS: HEMATOCRIT 35.6 % (32.4-45.2); HEMOGLOBIN 11.9 GM/dL (10.7-15.3); MCH 31.5 pg (25.7-33.7); MCHC 33.4 g/dl (32.0-36.0); MEAN CELL VOLUME 94.1 fl (80-96); MEAN PLT VOLUME 10.4 fl (7.5-11.1); PLATELET COUNT 167 K/MM3 (134-434); RBC 3.79 M/mm3 (3.60-5.2); RDW 14.7 % (11.6-15.6)
[2020-10-11 13:50] LABS: BLOOD UREA NITROGEN 29.2 mg/dL (7-18); CALCIUM 9.5 mg/dL (8.5-10.1)
[2020-10-11 13:52] LABS: ALBUMIN 3.4 g/dl (3.4-5.0)
[2020-10-11 13:54] LABS: CREATININE 1.4 mg/dL (0.55-1.3)
[2020-10-11 13:55] LABS: BILIRUBIN,TOTAL 0.3 mg/dL (0.2-1); TOT PROT 8.3 g/dl (6.4-8.2)
== END 2020-10-11 13:22 | disposition home or self-care (01) ==
LOC: JINFUSION 12:07 → J7W 12:08 → JINFUSION 13:22
PROVIDERS: ATTEND Internal Medicine
DX: E11.621 Type 2 diabetes mellitus with foot ulcer (principal); L97.509 Non-pressure chronic ulcer of other part of unspecified foot with unspecified severity; L03.90 Cellulitis, unspecified
CPT/HCPCS: 36415; 80053; 85027; 96365

== ENCOUNTER 2020-10-12 12:13 | Day surgery (SDC) | payer SELFPAY ==
[2020-10-12 12:39] VITALS: BP 145/71; PULSE 81; TEMP 97.6
== END 2020-10-12 14:24 | disposition home or self-care (01) ==
LOC: JINFUSION 12:13 → J7W 12:14 → JINFUSION 14:24
PROVIDERS: ATTEND Internal Medicine
CPT/HCPCS: 96365

== ENCOUNTER 2020-10-13 11:53 | Day surgery (SDC) | payer SELFPAY ==
[2020-10-13] MEDS ORDERED: DEXTROSE 5%-WATER 100 ML IVPB ONE (12:02)
[2020-10-13 12:46] VITALS: TEMP 97.4
[2020-10-13 12:51] VITALS: BP 149/76; PULSE 83
== END 2020-10-13 12:52 | disposition home or self-care (01) ==
LOC: J7W 11:53 → JINFUSION 11:53
PROVIDERS: ATTEND Internal Medicine
DX: E11.621 Type 2 diabetes mellitus with foot ulcer (principal); L97.509 Non-pressure chronic ulcer of other part of unspecified foot with unspecified severity; L03.90 Cellulitis, unspecified
CPT/HCPCS: 96365

== ENCOUNTER 2020-10-14 11:46 | Day surgery (SDC) | payer OTHER ==
[2020-10-14] MEDS ORDERED: DEXTROSE 5%-WATER 100 ML IVPB ONE (12:06)
[2020-10-14] MEDS ORDERED: CEFTRIAXONE 2 GM in DEXTROSE 5%-WATER 100 ML IVPB ONE (12:15)
[2020-10-14 12:38] VITALS: BP 139/71; PULSE 77; TEMP 97.3
== END 2020-10-14 12:30 | disposition home or self-care (01) ==
LOC: JINFUSION 11:46 → J7W 11:46 → JINFUSION 12:30
PROVIDERS: ATTEND Internal Medicine
DX: E11.621 Type 2 diabetes mellitus with foot ulcer (principal); L97.509 Non-pressure chronic ulcer of other part of unspecified foot with unspecified severity; L03.90 Cellulitis, unspecified
CPT/HCPCS: 96365

== ENCOUNTER 2020-10-15 12:06 | Day surgery (SDC) | payer OTHER ==
[2020-10-15] MEDS ORDERED: DEXTROSE 5%-WATER 100 ML IVPB ONE (12:16)
[2020-10-15] MEDS ORDERED: CEFTRIAXONE 2 GM in DEXTROSE 5%-WATER 100 ML IVPB ONE (12:30)
[2020-10-15 12:31] VITALS: TEMP 98.3
[2020-10-15 13:22] VITALS: BP 133/66; PULSE 72
== END 2020-10-15 13:10 | disposition home or self-care (01) ==
LOC: JINFUSION 12:06 → J7W 12:06 → JINFUSION 13:10
PROVIDERS: ATTEND Internal Medicine
DX: E11.621 Type 2 diabetes mellitus with foot ulcer (principal); L97.509 Non-pressure chronic ulcer of other part of unspecified foot with unspecified severity; L03.90 Cellulitis, unspecified
CPT/HCPCS: 96365

== ENCOUNTER 2020-10-16 12:08 | Day surgery (SDC) | payer OTHER ==
[2020-10-16] MEDS ORDERED: DEXTROSE 5%-WATER 100 ML IVPB ONE (12:21)
[2020-10-16] MEDS ORDERED: CEFTRIAXONE 2 GM in DEXTROSE 5%-WATER 100 ML IVPB ONE (12:30)
[2020-10-16 12:32] VITALS: TEMP 97.9
[2020-10-16 13:08] VITALS: BP 126/65; PULSE 76
== END 2020-10-16 13:09 | disposition home or self-care (01) ==
LOC: JINFUSION 12:08 → J7W 12:09 → JINFUSION 13:09
PROVIDERS: ATTEND Internal Medicine
DX: E11.621 Type 2 diabetes mellitus with foot ulcer (principal); L97.509 Non-pressure chronic ulcer of other part of unspecified foot with unspecified severity; L03.90 Cellulitis, unspecified
CPT/HCPCS: 96365

== ENCOUNTER 2020-10-17 12:15 | Day surgery (SDC) | payer OTHER ==
[2020-10-17] MEDS ORDERED: CEFTRIAXONE 2 GM in DEXTROSE 5%-WATER 100 ML IVPB ONE (12:30)
[2020-10-17] MEDS ORDERED: DEXTROSE 5%-WATER 100 ML IVPB ONE (12:31)
[2020-10-17 12:41] VITALS: TEMP 98.4
[2020-10-17 12:59] VITALS: BP 114/68; PULSE 65
== END 2020-10-17 13:15 | disposition home or self-care (01) ==
LOC: JINFUSION 12:15 → J7W 12:16 → JINFUSION 13:15
PROVIDERS: ATTEND Internal Medicine
DX: E11.621 Type 2 diabetes mellitus with foot ulcer (principal); L97.509 Non-pressure chronic ulcer of other part of unspecified foot with unspecified severity; L03.90 Cellulitis, unspecified
CPT/HCPCS: 96365; 96367

== ENCOUNTER 2020-10-18 10:18 | Day surgery (SDC) | payer OTHER ==
[2020-10-18] MEDS ORDERED: DEXTROSE 5%-WATER 100 ML IVPB ONE (12:02)
[2020-10-18 12:21] VITALS: TEMP 97.6
[2020-10-18 12:33] LABS: HEMATOCRIT 35.1 % (32.4-45.2); HEMOGLOBIN 11.7 GM/dL (10.7-15.3); MCH 31.3 pg (25.7-33.7); MCHC 33.3 g/dl (32.0-36.0); MEAN CELL VOLUME 94.1 fl (80-96); MEAN PLT VOLUME 10.2 fl (7.5-11.1); PLATELET COUNT 189 K/MM3 (134-434); RBC 3.73 M/mm3 (3.60-5.2); RDW 14.8 % (11.6-15.6); WHITE BLOOD COUNT 7.4 K/mm3 (4.0-10.0)
[2020-10-18 12:54] LABS: ALBUMIN 3.2 g/dl (3.4-5.0); CALCIUM 9.4 mg/dL (8.5-10.1)
[2020-10-18 12:55] LABS: BLOOD UREA NITROGEN 33.2 mg/dL (7-18)
[2020-10-18 12:58] LABS: CREATININE 1.8 mg/dL (0.55-1.3)
[2020-10-18 12:59] VITALS: BP 118/66; PULSE 70
[2020-10-18 12:59] LABS: BILIRUBIN,TOTAL 0.5 mg/dL (0.2-1)
== END 2020-10-18 13:00 | disposition home or self-care (01) ==
LOC: JINFUSION 10:18 → J7W 11:56 → JINFUSION 13:00
PROVIDERS: ATTEND Internal Medicine
DX: E11.621 Type 2 diabetes mellitus with foot ulcer (principal); L97.509 Non-pressure chronic ulcer of other part of unspecified foot with unspecified severity; L03.90 Cellulitis, unspecified
CPT/HCPCS: 36415; 80053; 85027; 96365

== ENCOUNTER 2020-10-19 11:41 | Day surgery (SDC) | payer OTHER ==
[2020-10-19] MEDS ORDERED: DEXTROSE 5%-WATER 100 ML IVPB ONE (11:54)
[2020-10-19 12:56] VITALS: BP 133/75; PULSE 78; TEMP 98.1
== END 2020-10-19 14:31 | disposition home or self-care (01) ==
LOC: JINFUSION 11:41 → J7W 11:41 → JINFUSION 14:31
PROVIDERS: ATTEND Internal Medicine
DX: E11.621 Type 2 diabetes mellitus with foot ulcer (principal); L97.509 Non-pressure chronic ulcer of other part of unspecified foot with unspecified severity; L03.90 Cellulitis, unspecified
CPT/HCPCS: 96365

== ENCOUNTER 2020-10-20 11:52 | Day surgery (SDC) | payer SELFPAY ==
[2020-10-20] MEDS ORDERED: DEXTROSE 5%-WATER 100 ML IVPB ONE (11:56)
[2020-10-20 12:11] VITALS: TEMP 97.8
[2020-10-20 12:40] VITALS: BP 125/63; PULSE 75
== END 2020-10-20 12:55 | disposition home or self-care (01) ==
LOC: JINFUSION 11:52 → J7W 11:52 → JINFUSION 12:55
PROVIDERS: ATTEND Internal Medicine
DX: E11.621 Type 2 diabetes mellitus with foot ulcer (principal); L97.509 Non-pressure chronic ulcer of other part of unspecified foot with unspecified severity; L03.90 Cellulitis, unspecified
CPT/HCPCS: 96365

== ENCOUNTER 2020-10-21 11:52 | Day surgery (SDC) | payer SELFPAY ==
[2020-10-21] MEDS ORDERED: DEXTROSE 5%-WATER 100 ML IVPB ONE (12:12)
[2020-10-21 12:48] VITALS: BP 124/58; PULSE 60; TEMP 98.4
== END 2020-10-21 15:01 | disposition home or self-care (01) ==
LOC: J7W 11:52 → JINFUSION 11:52
PROVIDERS: ATTEND Internal Medicine
DX: E11.621 Type 2 diabetes mellitus with foot ulcer (principal); L97.508 Non-pressure chronic ulcer of other part of unspecified foot with other specified severity; L03.90 Cellulitis, unspecified
CPT/HCPCS: 96365

== ENCOUNTER 2020-10-22 11:42 | Day surgery (SDC) | payer SELFPAY ==
[2020-10-22] MEDS ORDERED: DEXTROSE 5%-WATER 100 ML IVPB ONE (11:48)
[2020-10-22 12:00] VITALS: TEMP 98.1
[2020-10-22 12:52] VITALS: BP 126/72; PULSE 86
== END 2020-10-22 12:45 | disposition home or self-care (01) ==
LOC: JINFUSION 11:42 → J7W 11:43 → JINFUSION 12:45
PROVIDERS: ATTEND Internal Medicine
DX: E11.621 Type 2 diabetes mellitus with foot ulcer (principal); L97.508 Non-pressure chronic ulcer of other part of unspecified foot with other specified severity; L03.90 Cellulitis, unspecified
CPT/HCPCS: 96365

== ENCOUNTER 2020-10-23 11:47 | Day surgery (SDC) | payer SELFPAY ==
[2020-10-23] MEDS ORDERED: DEXTROSE 5%-WATER 100 ML IVPB ONE (11:50)
[2020-10-23 12:02] VITALS: TEMP 98.4
[2020-10-23 13:39] VITALS: BP 119/72; PULSE 72
== END 2020-10-23 14:38 | disposition home or self-care (01) ==
LOC: JINFUSION 11:47 → J7W 11:47 → JINFUSION 14:38
PROVIDERS: ATTEND Internal Medicine
DX: E11.621 Type 2 diabetes mellitus with foot ulcer (principal); L97.508 Non-pressure chronic ulcer of other part of unspecified foot with other specified severity; L03.90 Cellulitis, unspecified
CPT/HCPCS: 96365

== ENCOUNTER 2020-10-24 11:04 | Day surgery (SDC) | payer OTHER ==
[2020-10-24] MEDS ORDERED: CEFTRIAXONE 2 GM in DEXTROSE 5%-WATER 100 ML IVPB ONE (11:15)
[2020-10-24] MEDS ORDERED: DEXTROSE 5%-WATER 100 ML IVPB ONE (11:16)
[2020-10-24 11:26] VITALS: BMI 40.5
[2020-10-24 11:29] VITALS: TEMP 97.9
[2020-10-24 11:57] VITALS: BP 126/72; PULSE 68
== END 2020-10-24 12:02 | disposition home or self-care (01) ==
LOC: JINFUSION 11:04 → J7W 11:05 → JINFUSION 12:02
PROVIDERS: ATTEND Internal Medicine
DX: E11.621 Type 2 diabetes mellitus with foot ulcer (principal); L97.508 Non-pressure chronic ulcer of other part of unspecified foot with other specified severity; L03.90 Cellulitis, unspecified
CPT/HCPCS: 96365

== ENCOUNTER 2020-10-25 10:50 | Day surgery (SDC) | payer SELFPAY ==
[2020-10-25] MEDS ORDERED: DEXTROSE 5%-WATER 100 ML IVPB ONE (10:56)
[2020-10-25 12:44] VITALS: BP 125/78; PULSE 86; TEMP 98
[2020-10-25 13:53] LABS: BASO % 0.4 % (0-2.0); HEMATOCRIT 36.3 % (32.4-45.2); HEMOGLOBIN 12.1 GM/dL (10.7-15.3); MCH 31.7 pg (25.7-33.7); MCHC 33.3 g/dl (32.0-36.0); MEAN CELL VOLUME 95.2 fl (80-96); MEAN PLT VOLUME 10.2 fl (7.5-11.1); MONO % 6.6 % (3.8-10.2); PLATELET COUNT 205 K/MM3 (134-434); RBC 3.81 M/mm3 (3.60-5.2); RDW 14.7 % (11.6-15.6); WHITE BLOOD COUNT 10.6 K/mm3 (4.0-10.0)
[2020-10-25 14:02] LABS: CALCIUM 8.9 mg/dL (8.5-10.1)
[2020-10-25 14:03] LABS: ALBUMIN 3.5 g/dl (3.4-5.0); BLOOD UREA NITROGEN 34.6 mg/dL (7-18)
[2020-10-25 14:06] LABS: CREATININE 1.4 mg/dL (0.55-1.3)
[2020-10-25 14:08] LABS: BILIRUBIN,TOTAL 0.3 mg/dL (0.2-1); TOT PROT 8.4 g/dl (6.4-8.2)
== END 2020-10-25 12:47 | disposition home or self-care (01) ==
LOC: J7W 10:50 → JINFUSION 10:50
PROVIDERS: ATTEND Internal Medicine
DX: E11.621 Type 2 diabetes mellitus with foot ulcer (principal); L97.508 Non-pressure chronic ulcer of other part of unspecified foot with other specified severity; L03.90 Cellulitis, unspecified
CPT/HCPCS: 36415; 80053; 85025; 96365

== ENCOUNTER → 2020-11-02 | Day surgery (SDC) | payer OTHER | END | disposition home or self-care (01) | LOC: JRADIR 11:19 | PROVIDERS: ATTEND Internal Medicine | PROC: 02PY03Z Removal of Infusion Device from Great Vessel, Open Approach (ICD-10-PCS; principal; 2020-11-02) | DX: Z45.2 Encounter for adjustment and management of vascular access device (principal) | CPT/HCPCS: 36589 ==

== ENCOUNTER 2021-03-18 18:54 | Inpatient (IN) | payer OTHER ==
[2021-03-18] MEDS ORDERED: ACETAMINOPHEN 1000 MG/100 ML VIAL (NON FORMULARY) IVPB ONE (20:23)
[2021-03-18] MEDS ORDERED: VANCOMYCIN 1 GM in D5W (PRE-DOCKED) 1,000 MG/250 ML IVPB ONE (20:28)
[2021-03-18] MEDS ORDERED: PIPERACILLIN/TAZOB 3.375 GM 3.375 GM in DEXTROSE 5%-WATER - 50 ML IVPB ONE (20:28)
[2021-03-18] MEDS ORDERED: VANCOMYCIN 1 GRAM (PRE-DOCKED) 1,000 MG/250 ML BAG IVPB ONE (20:48)
[2021-03-18] MEDS ORDERED: PIPERACILLIN/TAZOB 3.375 GM 3.375 GM/50 ML BAG IVPB ONE (20:48)
[2021-03-18] MEDS ORDERED: ACETAMINOPHEN INJECTION 100 ML IVPB ONE (20:48)
[2021-03-18 21:29] LABS: BASO % 0.6 % (0-2.0); EOS % 1.4 % (0-4.5); HEMATOCRIT 38.4 % (32.4-45.2); HEMOGLOBIN 12.9 GM/dL (10.7-15.3); LYMPH % 30.5 % (8-40); MCH 31.2 pg (25.7-33.7); MCHC 33.6 g/dl (32.0-36.0); MEAN CELL VOLUME 92.8 fl (80-96); MEAN PLT VOLUME 9.8 fl (7.5-11.1); MONO % 5.6 % (3.8-10.2); NEUT % 61.9 % (42.8-82.8); PLATELET COUNT 182 10^3/uL (134-434); RBC 4.14 M/mm3 (3.60-5.2); RDW 15.4 % (11.6-15.6)
[2021-03-18 21:34] LABS: INR 0.96 (0.83-1.09); PROTHROMBIN TIME (PATIENT) 11.8 SEC (9.7-13.0)
[2021-03-18 21:51] LABS: CHLORIDE 108 mmol/L (98-107); SODIUM 139 mmol/L (136-145)
[2021-03-18 21:53] LABS: CALCIUM 8.9 mg/dL (8.5-10.1)
[2021-03-18 21:54] LABS: ALBUMIN 3.2 g/dl (3.4-5.0); ANION GAP 5 MMOL/L (8-16); BLOOD UREA NITROGEN 33.7 mg/dL (7-18); CO2 27 mmol/L (21-32); GLUCOSE,RANDOM 84 mg/dL (74-106)
[2021-03-18 21:57] LABS: CREATININE 1.7 mg/dL (0.55-1.3); SGOT/AST 22 U/L (15-37); SGPT/ALT 19 U/L (13-61)
[2021-03-18 21:58] LABS: BILIRUBIN,TOTAL 0.3 mg/dL (0.2-1); TOT PROT 8.9 g/dl (6.4-8.2)
[2021-03-18 22:00] LABS: ALK PHOS 101 U/L (45-117)
[2021-03-18] MEDS ORDERED: SODIUM CHLORIDE 1,000 ML IV SCH (23:00)
[2021-03-19 03:05] LABS: EPI CELLS 10 /uL (0-25.1); HYALINE CASTS 1 /uL (0-3.1); URINE APPEARANCE CLEAR; URINE BACTERIA 148 /uL (0-1359); URINE BILIRUBIN NEGATIVE (NEGATIVE); URINE COLOR YELLOW; URINE GLUCOSE (UA) NEGATIVE (NEGATIVE); URINE KETONE NEGATIVE (NEGATIVE); URINE LEUK ESTERASE NEGATIVE (NEGATIVE); URINE NITRITE NEGATIVE (NEGATIVE); URINE PROTEIN 2+ (NEGATIVE); URINE RBC 5 /uL (0-23.9); URINE UROBILINOGEN 0.2 mg/dL (0.2-1.0); URINE WBC 10 /uL (0-25.8)
[2021-03-19 03:50] VITALS: BMI 37.5
[2021-03-19] MEDS ORDERED: traMADol HCL 50 MG TABLET PO PRN (05:51)
[2021-03-19] MEDS: DOCUSATE SODIUM 100 MG CAPSULE (FP) PO SCH ×3 (06:13→20:59)
[2021-03-19] MEDS: INSULIN SLIDING SCALE (NOVOLOG) 1 VIAL SQ SCH ×4 (06:24→20:59)
[2021-03-19 08:32] LABS: BASO % 0.6 % (0-2.0); EOS % 1.9 % (0-4.5); HEMATOCRIT 36.1 % (32.4-45.2); HEMOGLOBIN 12.1 GM/dL (10.7-15.3); LYMPH % 34.4 % (8-40); MCHC 33.5 g/dl (32.0-36.0); MEAN CELL VOLUME 92.5 fl (80-96); MEAN PLT VOLUME 9.9 fl (7.5-11.1); MONO % 6.5 % (3.8-10.2); NEUT % 56.6 % (42.8-82.8); PLATELET COUNT 176 10^3/uL (134-434); WHITE BLOOD COUNT 6.5 K/mm3 (4.0-10.0)
[2021-03-19] MEDS ORDERED: DEXTROSE 5%-WATER - 50 ML IVPB ONE (08:46)
[2021-03-19] MEDS ORDERED: PIPERACILLIN/TAZOBACTAM 3.375 GM VIAL IVPB ONE (08:46)
[2021-03-19 08:50] LABS: ALBUMIN 2.8 g/dl (3.4-5.0); BLOOD UREA NITROGEN 34.1 mg/dL (7-18)
[2021-03-19 08:52] LABS: BILIRUBIN,TOTAL 0.5 mg/dL (0.2-1); TOT PROT 7.6 g/dl (6.4-8.2)
[2021-03-19 08:53] LABS: CALCIUM 8.5 mg/dL (8.5-10.1); CREATININE 1.7 mg/dL (0.55-1.3)
[2021-03-19] MEDS ORDERED: VANCOMYCIN 1 GRAM (PRE-DOCKED) 1,000 MG/250 ML BAG IVPB SCH (09:00)
[2021-03-19] MEDS: LISINOPRIL 5 MG TABLET PO SCH (09:41)
[2021-03-19] MEDS: ASPIRIN 81 MG CHEWABLE TABLETS PO SCH (09:41)
[2021-03-19] MEDS ORDERED: PIPERACILLIN/TAZOB 3.375 GM 3.375 GM in DEXTROSE 5%-WATER - 50 ML IVPB SCH (10:00)
[2021-03-19] MEDS ORDERED: VANCOMYCIN 1,000 MG in DEXTROSE 5%-WATER - 250 ML IVPB SCH (11:00)
[2021-03-19] MEDS ORDERED: PT OWN MED DRAWER 7, Y5N ONE (16:53)
[2021-03-19] MEDS: COLLAGENASE CLOSTRIDIUM HIST. 30 GRAMS TUBE TP SCH (16:53)
[2021-03-19] MEDS ORDERED: INSULIN (NOVOLOG) ASPART 100 UNITS/ML 10ML VIAL ONE (20:40)
[2021-03-19] MEDS: SENNOSIDES 8.6MG TABLET (FP) PO SCH (20:59)
[2021-03-20] MEDS: DOCUSATE SODIUM 100 MG CAPSULE (FP) PO SCH ×3 (05:54→21:11)
[2021-03-20] MEDS: INSULIN SLIDING SCALE (NOVOLOG) 1 VIAL SQ SCH ×5 (05:59→21:16)
[2021-03-20] MEDS ORDERED: INSULIN (LEVEMIR) 100 UNITS/ML UNITS SQ SCH ×4 (07:00→20:59)
[2021-03-20 08:10] LABS: CALCIUM 8.9 mg/dL (8.5-10.1)
[2021-03-20 08:11] LABS: BLOOD UREA NITROGEN 31.2 mg/dL (7-18); MAGNESIUM 1.8 mg/dL (1.8-2.4)
[2021-03-20 08:14] LABS: CREATININE 1.4 mg/dL (0.55-1.3)
[2021-03-20] MEDS: LISINOPRIL 5 MG TABLET PO SCH (11:54)
[2021-03-20] MEDS: COLLAGENASE CLOSTRIDIUM HIST. 30 GRAMS TUBE TP SCH (11:54)
[2021-03-20] MEDS: ASPIRIN 81 MG CHEWABLE TABLETS PO SCH (11:54)
[2021-03-20] MEDS ORDERED: INSULIN (NOVOLOG) ASPART 100 UNITS/ML 10ML VIAL ONE (20:56)
[2021-03-20] MEDS: SENNOSIDES 8.6MG TABLET (FP) PO SCH (21:11)
[2021-03-21] MEDS: guaiFENesin/D-METHORPHAN HB 10 ML UNIT-DOSE CUPS PO PRN ×3 (02:27→16:45)
[2021-03-21] MEDS: INSULIN SLIDING SCALE (NOVOLOG) 1 VIAL SQ SCH ×3 (06:37→17:10)
[2021-03-21] MEDS: DOCUSATE SODIUM 100 MG CAPSULE (FP) PO SCH ×2 (06:39→13:59)
[2021-03-21] MEDS: ASPIRIN 81 MG CHEWABLE TABLETS PO SCH (10:29)
[2021-03-21] MEDS: COLLAGENASE CLOSTRIDIUM HIST. 30 GRAMS TUBE TP SCH ×2 (10:29→16:00)
[2021-03-21] MEDS: LISINOPRIL 5 MG TABLET PO SCH (10:29)
[2021-03-21 15:16] VITALS: BP 129/66; PULSE 77; TEMP 97.7
== END 2021-03-21 18:11 | disposition home or self-care (01) | DRG 380 ==
LOC: JER 18:54 → JERBED 22:58 → J7W 03-19 02:46
PROVIDERS: ADMIT Internal Medicine; ATTEND Family Medicine
DX: E11.69 Type 2 diabetes mellitus with other specified complication (principal); M86.60 Other chronic osteomyelitis, unspecified site; E11.621 Type 2 diabetes mellitus with foot ulcer; E11.649 Type 2 diabetes mellitus with hypoglycemia without coma; L97.518 Non-pressure chronic ulcer of other part of right foot with other specified severity; I12.9 Hypertensive chronic kidney disease with stage 1 through stage 4 chronic kidney disease, or unspecified chronic kidney disease; E11.22 Type 2 diabetes mellitus with diabetic chronic kidney disease; N18.9 Chronic kidney disease, unspecified; E66.9 Obesity, unspecified; E11.65 Type 2 diabetes mellitus with hyperglycemia; M79.672 Pain in left foot; Z89.421 Acquired absence of other right toe(s); Z89.422 Acquired absence of other left toe(s); Z68.37 Body mass index [BMI] 37.0-37.9, adult
CPT/HCPCS: 15275; 36415; 71045-TC-FY; 80048; 80053; 81003; 82962; 83036; 83605; 83735; 84484; 85025; 85610; 86850; 86900; 86901; 87040; 87086; 93005; 93010; 99285-25; C9803; J0131; Q4106; U0003; U0005

== ENCOUNTER 2022-09-25 21:12 | Inpatient (IN) | payer OTHER ==
[2022-09-25] MEDS ORDERED: VANCOMYCIN 1 GM in D5W (PRE-DOCKED) 1,000 MG/250 ML IVPB ONE (23:03)
[2022-09-25] MEDS ORDERED: PIPERACILLIN/TAZOB 4.5 GM 4.5 GM in DEXTROSE 5%-WATER 100 ML IVPB ONE (23:03)
[2022-09-25] MEDS ORDERED: VANCOMYCIN/WATER FOR INJ (PEG) 1,000 MG/200 ML BAG IVPB ONE (23:13)
[2022-09-25 23:17] LABS: BASO % 0.8 % (0-2.0); EOS % 2.6 % (0-4.5); HEMATOCRIT 34.5 % (32.4-45.2); HEMOGLOBIN 11.7 GM/dL (10.7-15.3); LYMPH % 23.2 % (8-40); MCH 30.8 pg (25.7-33.7); MCHC 33.8 g/dl (32.0-36.0); MONO % 7.1 % (3.8-10.2); NEUT % 66.3 % (42.8-82.8); RBC 3.79 M/mm3 (3.60-5.2); RDW 13.8 % (11.6-15.6); WHITE BLOOD COUNT 11.3 K/mm3 (4.0-10.0)
[2022-09-25 23:25] LABS: INR 1.09 (0.83-1.09); PROTHROMBIN TIME (PATIENT) 12.6 SEC (9.7-13.0)
[2022-09-25 23:27] LABS: ACTIVATED PTT 25.1 SECONDS (25.2-36.5)
[2022-09-25 23:39] LABS: PLATELET COUNT 241 10^3/uL (134-434)
[2022-09-25 23:40] LABS: CALCIUM 8.8 mg/dL (8.5-10.1)
[2022-09-25 23:41] LABS: ALBUMIN 2.6 g/dl (3.4-5.0); BLOOD UREA NITROGEN 38.3 mg/dL (7-18); MAGNESIUM 1.9 mg/dL (1.8-2.4)
[2022-09-25 23:44] LABS: CREATININE 1.9 mg/dL (0.55-1.3)
[2022-09-25 23:46] LABS: BILIRUBIN,TOTAL 0.4 mg/dL (0.2-1); TOT PROT 7.4 g/dl (6.4-8.2)
[2022-09-26] MEDS ORDERED: valACYclovir HCL 500 MG TABLET (FP) PO ONE (03:01)
[2022-09-26] MEDS ORDERED: valACYclovir HCL 1000 MG TABLET PO ONE (03:01)
[2022-09-26] MEDS ORDERED: valACYclovir HCL 500 MG TABLET (FP) ONE (03:07)
[2022-09-26] MEDS: LACTATED RINGERS SOLUTION 1,000 ML/1,000 ML INFUS.BAG IV SCH (03:12)
[2022-09-26] MEDS ORDERED: HEPARIN NA (PORCINE) 5,000 UNITS/ML 1ML VIAL ONE ×2 (06:01→09:47)
[2022-09-26] MEDS: HEPARIN NA (PORCINE) 5,000 UNITS/ML 1ML VIAL SQ SCH ×3 (06:08→22:07)
[2022-09-26 06:13] LABS: EPI CELLS 13 /uL (0-25.1); HYALINE CASTS 1 /uL (0-3.1); URINE APPEARANCE CLEAR; URINE BACTERIA 2 /uL (0-1359); URINE BILIRUBIN NEGATIVE (NEGATIVE); URINE COLOR YELLOW; URINE GLUCOSE (UA) TRACE (NEGATIVE); URINE KETONE NEGATIVE (NEGATIVE); URINE LEUK ESTERASE NEGATIVE (NEGATIVE); URINE NITRITE NEGATIVE (NEGATIVE); URINE PROTEIN 1+ (NEGATIVE); URINE RBC 7 /uL (0-23.9); URINE WBC 6 /uL (0-25.8)
[2022-09-26] MEDS: INSULIN SLIDING SCALE (NOVOLOG) 1 VIAL SQ SCH ×4 (08:21→22:15)
[2022-09-26 08:36] LABS: ALBUMIN 2.4 g/dl (3.4-5.0); CALCIUM 8.5 mg/dL (8.5-10.1)
[2022-09-26 08:37] LABS: BLOOD UREA NITROGEN 39.7 mg/dL (7-18); MAGNESIUM 1.8 mg/dL (1.8-2.4)
[2022-09-26 08:40] LABS: CREATININE 1.7 mg/dL (0.55-1.3); PHOSPHOROUS 2.8 mg/dL (2.5-4.9)
[2022-09-26 08:41] LABS: BILIRUBIN,TOTAL 0.3 mg/dL (0.2-1); TOT PROT 7.1 g/dl (6.4-8.2)
[2022-09-26 08:44] LABS: BASO % 0.6 % (0-2.0); EOS % 2.9 % (0-4.5); HEMATOCRIT 33.5 % (32.4-45.2); HEMOGLOBIN 11.5 GM/dL (10.7-15.3); LYMPH % 22.3 % (8-40); MCHC 34.4 g/dl (32.0-36.0); MEAN CELL VOLUME 90.1 fl (80-96); MEAN PLT VOLUME 9.5 fl (7.5-11.1); MONO % 6.8 % (3.8-10.2); NEUT % 67.4 % (42.8-82.8); PLATELET COUNT 249 10^3/uL (134-434); RBC 3.72 M/mm3 (3.60-5.2); RDW 13.5 % (11.6-15.6); WHITE BLOOD COUNT 9.8 K/mm3 (4.0-10.0)
[2022-09-26] MEDS ORDERED: POLYETHYLENE GLYCOL (HEALTHYLAX) 3350 17 GM PACKET ONE (09:46)
[2022-09-26] MEDS ORDERED: ERTAPENEM SODIUM 1 GM VIAL ONE (09:47)
[2022-09-26] MEDS: POLYETHYLENE GLYCOL (HEALTHYLAX) 3350 17 GM PACKET PO SCH ×2 (09:48→22:07)
[2022-09-26] MEDS ORDERED: POLYETHYLENE GLYCOL (HEALTHYLAX) 3350 17 GM PACKET PO SCH (10:00)
[2022-09-26] MEDS ORDERED: ERTAPENEM SODIUM 1 GM in SODIUM CHLORIDE 50 ML IVPB SCH (10:00)
[2022-09-26] MEDS ORDERED: PIPERACILLIN/TAZOB 3.375 GM 3.375 GM/50 ML BAG IVPB ONE (17:55)
[2022-09-26] MEDS: PIPERACILLIN/TAZOB 3.375 GM 3.375 GM in DEXTROSE 5%-WATER - 50 ML IVPB SCH (18:08)
[2022-09-26 20:39] VITALS: BMI 37.9
[2022-09-26] MEDS: INSULIN (LEVEMIR) 100 UNITS/ML UNITS SQ SCH (22:07)
[2022-09-27] MEDS: PIPERACILLIN/TAZOB 3.375 GM 3.375 GM in DEXTROSE 5%-WATER - 50 ML IVPB SCH ×3 (02:45→18:01)
[2022-09-27] MEDS: LACTATED RINGERS SOLUTION 1,000 ML/1,000 ML INFUS.BAG IV SCH (04:45)
[2022-09-27] MEDS: INSULIN SLIDING SCALE (NOVOLOG) 1 VIAL SQ SCH ×4 (06:23→22:08)
[2022-09-27] MEDS: HEPARIN NA (PORCINE) 5,000 UNITS/ML 1ML VIAL SQ SCH ×3 (06:23→22:07)
[2022-09-27] MEDS: valACYclovir HCL 500 MG TABLET (FP) PO SCH (10:08)
[2022-09-27] MEDS: POLYETHYLENE GLYCOL (HEALTHYLAX) 3350 17 GM PACKET PO SCH ×2 (10:09→22:07)
[2022-09-27 10:13] LABS: BLOOD UREA NITROGEN 30.9 mg/dL (7-18)
[2022-09-27 10:16] LABS: CREATININE 1.5 mg/dL (0.55-1.3)
[2022-09-27] MEDS ORDERED: DOCUSATE SODIUM 100 MG CAPSULE (FP) PO ONE (11:25)
[2022-09-27] MEDS ORDERED: SODIUM CHLORIDE 0.45% 1,000 ML IV SCH (16:15)
[2022-09-27] MEDS ORDERED: INSULIN (NOVOLOG) ASPART 100 UNITS/ML 10ML VIAL ONE (22:01)
[2022-09-27] MEDS: INSULIN (LEVEMIR) 100 UNITS/ML UNITS SQ SCH (22:08)
[2022-09-28] MEDS: PIPERACILLIN/TAZOB 3.375 GM 3.375 GM in DEXTROSE 5%-WATER - 50 ML IVPB SCH ×3 (01:52→17:31)
[2022-09-28] MEDS: HEPARIN NA (PORCINE) 5,000 UNITS/ML 1ML VIAL SQ SCH (06:21)
[2022-09-28] MEDS: INSULIN SLIDING SCALE (NOVOLOG) 1 VIAL SQ SCH ×4 (06:21→23:01)
[2022-09-28 09:39] LABS: CALCIUM 9.1 mg/dL (8.5-10.1)
[2022-09-28 09:40] LABS: ALBUMIN 2.7 g/dl (3.4-5.0)
[2022-09-28 09:43] LABS: CREATININE 1.4 mg/dL (0.55-1.3)
[2022-09-28 09:45] LABS: BILIRUBIN,TOTAL 0.5 mg/dL (0.2-1); TOT PROT 8.1 g/dl (6.4-8.2)
[2022-09-28] MEDS: valACYclovir HCL 500 MG TABLET (FP) PO SCH (10:14)
[2022-09-28] MEDS: POLYETHYLENE GLYCOL (HEALTHYLAX) 3350 17 GM PACKET PO SCH (10:14)
[2022-09-28] MEDS ORDERED: INSULIN (NOVOLOG) ASPART 100 UNITS/ML 10ML VIAL ONE ×3 (11:32→17:01)
[2022-09-28] MEDS: DEXTROSE 5%-NORMAL SALINE 1,000 ML IV SCH (12:57)
[2022-09-28] MEDS ORDERED: SODIUM ZIRCONIUM CYCLOSILICATE (LOKELMA) 5 GM PACKET PO SCH (14:00)
[2022-09-28] MEDS ORDERED: MIDAZOLAM HCL 2 MG/2 ML SINGLE DOSE VIAL ONE (19:58)
[2022-09-28] MEDS ORDERED: PROPOFOL 20 ML ONE (19:58)
[2022-09-28] MEDS ORDERED: LIDOCAINE HCL 1%, 10 MG/ML (10ML VIAL) MDV ONE (20:17)
[2022-09-28] MEDS ORDERED: BUPIVACAINE HCL/PF 0.5% (5MG/ML) 10 ML VIAL ONE (20:18)
[2022-09-28] MEDS ORDERED: ONDANSETRON 4 MG/2 ML VIAL ONE (20:37)
[2022-09-28] MEDS ORDERED: LIDOCAINE HCL 1%, 10 MG/ML (20ML VIAL) INF ONE (20:43)
[2022-09-28] MEDS ORDERED: ONDANSETRON 4 MG/2 ML VIAL IVPUSH PRN (21:14)
[2022-09-28] MEDS ORDERED: PATIENT'S OWN MEDICATION (NON-FORMULARY) (Insulin Degludec [Tresiba Flextouch U-100] 100 U SQ SCH (22:00)
[2022-09-28] MEDS ORDERED: INSULIN (LEVEMIR) 100 UNITS/ML UNITS SQ SCH (22:00)
[2022-09-28] MEDS ORDERED: INSULIN LISPRO SQ SCH (22:00)
[2022-09-28] MEDS: INSULIN (LEVEMIR) 100 UNITS/ML UNITS SQ SCH (22:57)
[2022-09-28] MEDS: CEFPODOXIME PROXETIL 100 MG TABLET PO SCH (22:59)
[2022-09-29] MEDS: PIPERACILLIN/TAZOB 3.375 GM 3.375 GM in DEXTROSE 5%-WATER - 50 ML IVPB SCH ×3 (01:23→18:19)
[2022-09-29] MEDS ORDERED: MAGNESIUM HYDROX 2400MG/30ML ORAL SUSPENSION 30 ML CUP PO ONE (04:00)
[2022-09-29] MEDS: INSULIN (LEVEMIR) 100 UNITS/ML UNITS SQ SCH ×2 (06:28→22:14)
[2022-09-29] MEDS: INSULIN SLIDING SCALE (NOVOLOG) 1 VIAL SQ SCH ×4 (06:29→22:18)
[2022-09-29 09:35] LABS: HEMATOCRIT 32.3 % (32.4-45.2); HEMOGLOBIN 11.2 GM/dL (10.7-15.3); MCH 31.3 pg (25.7-33.7); MCHC 34.8 g/dl (32.0-36.0); MEAN CELL VOLUME 90.1 fl (80-96); MEAN PLT VOLUME 9.3 fl (7.5-11.1); PLATELET COUNT 242 10^3/uL (134-434); RBC 3.59 M/mm3 (3.60-5.2); RDW 13.1 % (11.6-15.6); WHITE BLOOD COUNT 7.7 K/mm3 (4.0-10.0)
[2022-09-29 10:05] LABS: BLOOD UREA NITROGEN 22.6 mg/dL (7-18); CALCIUM 8.8 mg/dL (8.5-10.1); MAGNESIUM 1.8 mg/dL (1.8-2.4)
[2022-09-29 10:08] LABS: CREATININE 1.5 mg/dL (0.55-1.3)
[2022-09-29] MEDS: ASPIRIN 81 MG CHEWABLE TABLETS PO SCH (10:41)
[2022-09-29] MEDS: CEFPODOXIME PROXETIL 100 MG TABLET PO SCH ×2 (10:41→22:13)
[2022-09-29] MEDS: POLYETHYLENE GLYCOL (HEALTHYLAX) 3350 17 GM PACKET PO SCH ×2 (11:28→22:13)
[2022-09-29] MEDS: valACYclovir HCL 500 MG TABLET (FP) PO SCH (11:28)
[2022-09-29] MEDS: DEXTROSE 5%-NORMAL SALINE 1,000 ML IV SCH (12:03)
[2022-09-29] MEDS ORDERED: INSULIN (NOVOLOG) ASPART 100 UNITS/ML 10ML VIAL ONE ×3 (12:06→22:55)
[2022-09-29] MEDS: HEPARIN NA (PORCINE) 5,000 UNITS/ML 1ML VIAL SQ SCH ×2 (15:23→22:14)
[2022-09-29] MEDS ORDERED: INSULIN (NOVOLOG MIX 70/30) 100 UNITS/ML MDV SQ ONE ×2 (22:16→22:54)
[2022-09-30] MEDS: PIPERACILLIN/TAZOB 3.375 GM 3.375 GM in DEXTROSE 5%-WATER - 50 ML IVPB SCH ×3 (01:48→17:44)
[2022-09-30] MEDS: HEPARIN NA (PORCINE) 5,000 UNITS/ML 1ML VIAL SQ SCH ×3 (06:06→21:19)
[2022-09-30] MEDS: DEXTROSE 5%-NORMAL SALINE 1,000 ML IV SCH (06:29)
[2022-09-30] MEDS: INSULIN (LEVEMIR) 100 UNITS/ML UNITS SQ SCH ×2 (06:33→21:20)
[2022-09-30] MEDS: INSULIN SLIDING SCALE (NOVOLOG) 1 VIAL SQ SCH ×4 (06:34→21:20)
[2022-09-30] MEDS ORDERED: INSULIN (LEVEMIR) 100 UNITS/ML UNITS SQ ONE (06:49)
[2022-09-30] MEDS ORDERED: INSULIN (NOVOLOG) ASPART 100 UNITS/ML 10ML VIAL ONE ×3 (06:49→21:01)
[2022-09-30 08:13] LABS: BASO % 0.7 % (0-2.0); EOS % 2.4 % (0-4.5); HEMATOCRIT 31.9 % (32.4-45.2); HEMOGLOBIN 10.9 GM/dL (10.7-15.3); LYMPH % 33.7 % (8-40); MCH 31.1 pg (25.7-33.7); MCHC 34.1 g/dl (32.0-36.0); MEAN CELL VOLUME 91.4 fl (80-96); MEAN PLT VOLUME 9.3 fl (7.5-11.1); MONO % 5.3 % (3.8-10.2); NEUT % 57.9 % (42.8-82.8); PLATELET COUNT 225 10^3/uL (134-434); RBC 3.49 M/mm3 (3.60-5.2); RDW 13.6 % (11.6-15.6); WHITE BLOOD COUNT 7.3 K/mm3 (4.0-10.0)
[2022-09-30 08:34] LABS: CALCIUM 8.8 mg/dL (8.5-10.1)
[2022-09-30 08:35] LABS: ALBUMIN 2.3 g/dl (3.4-5.0)
[2022-09-30 08:38] LABS: CREATININE 1.6 mg/dL (0.55-1.3)
[2022-09-30 08:40] LABS: BILIRUBIN,TOTAL 0.3 mg/dL (0.2-1); TOT PROT 7.2 g/dl (6.4-8.2)
[2022-09-30] MEDS: POLYETHYLENE GLYCOL (HEALTHYLAX) 3350 17 GM PACKET PO SCH ×2 (09:28→21:20)
[2022-09-30] MEDS: valACYclovir HCL 500 MG TABLET (FP) PO SCH (09:28)
[2022-09-30] MEDS: CEFPODOXIME PROXETIL 100 MG TABLET PO SCH ×2 (09:28→21:19)
[2022-09-30] MEDS: ASPIRIN 81 MG CHEWABLE TABLETS PO SCH (09:28)
[2022-09-30] MEDS ORDERED: SODIUM CHLORIDE 0.45% 1,000 ML IV SCH (15:15)
[2022-09-30] MEDS: SENNOSIDES 8.6MG TABLET (FP) PO SCH (21:19)
[2022-10-01] MEDS: PIPERACILLIN/TAZOB 3.375 GM 3.375 GM in DEXTROSE 5%-WATER - 50 ML IVPB SCH ×3 (02:54→17:51)
[2022-10-01] MEDS: HEPARIN NA (PORCINE) 5,000 UNITS/ML 1ML VIAL SQ SCH ×3 (06:26→22:11)
[2022-10-01] MEDS: INSULIN (LEVEMIR) 100 UNITS/ML UNITS SQ SCH ×2 (06:26→22:10)
[2022-10-01] MEDS: INSULIN SLIDING SCALE (NOVOLOG) 1 VIAL SQ SCH ×4 (06:27→22:09)
[2022-10-01 09:11] LABS: BASO % 0.7 % (0-2.0); EOS % 2.3 % (0-4.5); HEMATOCRIT 33.3 % (32.4-45.2); HEMOGLOBIN 11.8 GM/dL (10.7-15.3); LYMPH % 26.1 % (8-40); MCH 31.6 pg (25.7-33.7); MCHC 35.3 g/dl (32.0-36.0); MEAN CELL VOLUME 89.6 fl (80-96); MEAN PLT VOLUME 8.9 fl (7.5-11.1); MONO % 5.8 % (3.8-10.2); NEUT % 65.1 % (42.8-82.8); PLATELET COUNT 260 10^3/uL (134-434); RBC 3.72 M/mm3 (3.60-5.2); RDW 13.1 % (11.6-15.6); WHITE BLOOD COUNT 8.8 K/mm3 (4.0-10.0)
[2022-10-01 09:43] LABS: ALBUMIN 2.6 g/dl (3.4-5.0)
[2022-10-01 09:44] LABS: CREATININE 1.3 mg/dL (0.55-1.3)
[2022-10-01 09:46] LABS: BILIRUBIN,TOTAL 0.3 mg/dL (0.2-1); TOT PROT 7.9 g/dl (6.4-8.2)
[2022-10-01] MEDS: ASPIRIN 81 MG CHEWABLE TABLETS PO SCH (09:54)
[2022-10-01] MEDS: valACYclovir HCL 500 MG TABLET (FP) PO SCH (09:54)
[2022-10-01] MEDS: CEFPODOXIME PROXETIL 100 MG TABLET PO SCH ×2 (09:54→22:11)
[2022-10-01] MEDS: POLYETHYLENE GLYCOL (HEALTHYLAX) 3350 17 GM PACKET PO SCH ×2 (09:55→22:10)
[2022-10-01] MEDS ORDERED: SODIUM CHLORIDE 0.45% 1,000 ML IV SCH (12:12)
[2022-10-01] MEDS ORDERED: INSULIN (NOVOLOG) ASPART 100 UNITS/ML 10ML VIAL ONE (21:28)
[2022-10-01] MEDS: SENNOSIDES 8.6MG TABLET (FP) PO SCH (22:10)
[2022-10-02] MEDS: PIPERACILLIN/TAZOB 3.375 GM 3.375 GM in DEXTROSE 5%-WATER - 50 ML IVPB SCH ×2 (02:48→09:21)
[2022-10-02 03:49] VITALS: RESP 18
[2022-10-02] MEDS: HEPARIN NA (PORCINE) 5,000 UNITS/ML 1ML VIAL SQ SCH ×3 (06:25→22:05)
[2022-10-02] MEDS: INSULIN SLIDING SCALE (NOVOLOG) 1 VIAL SQ SCH ×4 (06:26→22:06)
[2022-10-02] MEDS: INSULIN (LEVEMIR) 100 UNITS/ML UNITS SQ SCH ×2 (06:28→22:06)
[2022-10-02] MEDS ORDERED: INSULIN (NOVOLOG) ASPART 100 UNITS/ML 10ML VIAL ONE ×4 (06:39→21:00)
[2022-10-02] MEDS ORDERED: INSULIN (LEVEMIR) 100 UNITS/ML UNITS SQ ONE (06:39)
[2022-10-02] MEDS: ASPIRIN 81 MG CHEWABLE TABLETS PO SCH (09:21)
[2022-10-02] MEDS: valACYclovir HCL 500 MG TABLET (FP) PO SCH (09:21)
[2022-10-02] MEDS: POLYETHYLENE GLYCOL (HEALTHYLAX) 3350 17 GM PACKET PO SCH ×2 (09:21→22:05)
[2022-10-02] MEDS: CEFPODOXIME PROXETIL 100 MG TABLET PO SCH (09:22)
[2022-10-02 11:13] LABS: ALBUMIN 2.5 g/dl (3.4-5.0); BLOOD UREA NITROGEN 21.9 mg/dL (7-18); CALCIUM 8.9 mg/dL (8.5-10.1)
[2022-10-02 11:23] LABS: CREATININE 1.5 mg/dL (0.55-1.3)
[2022-10-02 11:24] LABS: BILIRUBIN,TOTAL 0.4 mg/dL (0.2-1); TOT PROT 7.5 g/dl (6.4-8.2)
[2022-10-02] MEDS: ERTAPENEM SODIUM 1 GM in SODIUM CHLORIDE 50 ML IVPB SCH (18:54)
[2022-10-02] MEDS: SENNOSIDES 8.6MG TABLET (FP) PO SCH (22:05)
[2022-10-03] MEDS: HEPARIN NA (PORCINE) 5,000 UNITS/ML 1ML VIAL SQ SCH ×3 (06:10→22:04)
[2022-10-03] MEDS: INSULIN SLIDING SCALE (NOVOLOG) 1 VIAL SQ SCH ×4 (06:12→22:07)
[2022-10-03] MEDS: INSULIN (LEVEMIR) 100 UNITS/ML UNITS SQ SCH ×2 (06:12→22:05)
[2022-10-03] MEDS: valACYclovir HCL 500 MG TABLET (FP) PO SCH (10:53)
[2022-10-03] MEDS: POLYETHYLENE GLYCOL (HEALTHYLAX) 3350 17 GM PACKET PO SCH ×2 (10:54→22:04)
[2022-10-03] MEDS: ASPIRIN 81 MG CHEWABLE TABLETS PO SCH (10:54)
[2022-10-03] MEDS: ERTAPENEM SODIUM 1 GM in SODIUM CHLORIDE 50 ML IVPB SCH (10:55)
[2022-10-03] MEDS ORDERED: INSULIN (NOVOLOG) ASPART 100 UNITS/ML 10ML VIAL ONE (21:38)
[2022-10-03] MEDS: SENNOSIDES 8.6MG TABLET (FP) PO SCH (22:05)
[2022-10-04] MEDS ORDERED: INSULIN (NOVOLOG) ASPART 100 UNITS/ML 10ML VIAL ONE ×2 (05:46→12:15)
[2022-10-04] MEDS: INSULIN (LEVEMIR) 100 UNITS/ML UNITS SQ SCH (06:07)
[2022-10-04] MEDS: HEPARIN NA (PORCINE) 5,000 UNITS/ML 1ML VIAL SQ SCH (06:08)
[2022-10-04] MEDS: INSULIN SLIDING SCALE (NOVOLOG) 1 VIAL SQ SCH ×2 (06:09→12:17)
[2022-10-04] MEDS: ASPIRIN 81 MG CHEWABLE TABLETS PO SCH (09:08)
[2022-10-04] MEDS: ERTAPENEM SODIUM 1 GM in SODIUM CHLORIDE 50 ML IVPB SCH (09:09)
[2022-10-04] MEDS: valACYclovir HCL 500 MG TABLET (FP) PO SCH (09:09)
[2022-10-04] MEDS: POLYETHYLENE GLYCOL (HEALTHYLAX) 3350 17 GM PACKET PO SCH ×2 (09:09→09:14)
[2022-10-04 10:53] VITALS: BP 139/64; PULSE 76; TEMP 98
== END 2022-10-04 13:03 | disposition home health service (06) | DRG 314 ==
LOC: JER 21:12 → JERBED 23:10 → J6S 09-26 19:42
PROVIDERS: ADMIT Internal Medicine; ATTEND Family Medicine
PROC: 02HV33Z Insertion of Infusion Device into Superior Vena Cava, Percutaneous Approach (ICD-10-PCS; principal; 2022-10-03)
PROC: B548ZZA Ultrasonography of Superior Vena Cava, Guidance (ICD-10-PCS; 2022-10-03)
PROC: 0JBR0ZZ Excision of Left Foot Subcutaneous Tissue and Fascia, Open Approach (ICD-10-PCS; 2022-10-03)
PROC: 0QBP0ZZ Excision of Left Metatarsal, Open Approach (ICD-10-PCS; 2022-10-03)
PROC: 0QBP0ZX Excision of Left Metatarsal, Open Approach, Diagnostic (ICD-10-PCS; 2022-10-03)
PROC: 0QBP0ZX Excision of Left Metatarsal, Open Approach, Diagnostic (ICD-10-PCS; 2022-10-03)
PROC: 3E10X8Z Irrigation of Skin and Mucous Membranes using Irrigating Substance (ICD-10-PCS; 2022-10-03)
DX: E11.69 Type 2 diabetes mellitus with other specified complication (principal); E11.621 Type 2 diabetes mellitus with foot ulcer; L97.428 Non-pressure chronic ulcer of left heel and midfoot with other specified severity; I12.9 Hypertensive chronic kidney disease with stage 1 through stage 4 chronic kidney disease, or unspecified chronic kidney disease; E11.22 Type 2 diabetes mellitus with diabetic chronic kidney disease; N18.30 Chronic kidney disease, stage 3 unspecified; K59.00 Constipation, unspecified; N17.9 Acute kidney failure, unspecified; B00.1 Herpesviral vesicular dermatitis; E78.5 Hyperlipidemia, unspecified; M86.172 Other acute osteomyelitis, left ankle and foot; N39.0 Urinary tract infection, site not specified; E11.319 Type 2 diabetes mellitus with unspecified diabetic retinopathy without macular edema; L08.9 Local infection of the skin and subcutaneous tissue, unspecified; E11.65 Type 2 diabetes mellitus with hyperglycemia; E66.9 Obesity, unspecified; Z68.37 Body mass index [BMI] 37.0-37.9, adult; E87.5 Hyperkalemia; B95.2 Enterococcus as the cause of diseases classified elsewhere; Z89.421 Acquired absence of other right toe(s); Z89.422 Acquired absence of other left toe(s)
CPT/HCPCS: 0241U-QW; 36415; 36569; 73630-TC-LT; 73719-LT; 80048; 80053; 81003; 82962; 83036; 83605; 83735; 84100; 85025; 85027; 85610; 85651; 85730; 86140; 86850; 86900; 86901; 87040; 87070; 87075; 87076; 87077; 87186; 87205; 88304-TC; 88311-TC; 93005; 93010; 94760; 99285-25; G0480; J1644

== ENCOUNTER 2022-10-08 13:20 | Inpatient (IN) | payer OTHER ==
[2022-10-08] MEDS ORDERED: SODIUM CHLORIDE IV ONE (14:36)
[2022-10-08 16:03] LABS: VENOUS BASE EXCESS -0.8 mmol/L (-2-2); VENOUS O2 SATURATION 73.8 % (70-80); VENOUS PCO2 42.5 mmHg (38-52); VENOUS PH 7.377 (7.310-7.410)
[2022-10-08 16:05] LABS: BASO % 0.8 % (0-2.0); EOS % 1.2 % (0-4.5); HEMATOCRIT 33.2 % (32.4-45.2); HEMOGLOBIN 11.5 GM/dL (10.7-15.3); LYMPH % 22.2 % (8-40); MCH 31.8 pg (25.7-33.7); MCHC 34.5 g/dl (32.0-36.0); MEAN CELL VOLUME 92.2 fl (80-96); MEAN PLT VOLUME 9.9 fl (7.5-11.1); MONO % 8.4 % (3.8-10.2); NEUT % 67.4 % (42.8-82.8); PLATELET COUNT 239 10^3/uL (134-434); RBC 3.61 M/mm3 (3.60-5.2); RDW 13.4 % (11.6-15.6); WHITE BLOOD COUNT 10.5 K/mm3 (4.0-10.0)
[2022-10-08 16:11] LABS: INR 1.14 (0.83-1.09); PROTHROMBIN TIME (PATIENT) 13.2 SEC (9.7-13.0)
[2022-10-08 16:14] LABS: ACTIVATED PTT 32.2 SECONDS (25.2-36.5)
[2022-10-08 16:20] LABS: CHLORIDE 108 mmol/L (98-107); SODIUM 137 mmol/L (136-145)
[2022-10-08 16:22] LABS: CALCIUM 9.3 mg/dL (8.5-10.1)
[2022-10-08 16:23] LABS: ALBUMIN 2.6 g/dl (3.4-5.0); ANION GAP 6 MMOL/L (8-16); BLOOD UREA NITROGEN 31.8 mg/dL (7-18); CO2 23 mmol/L (21-32); GLUCOSE,RANDOM 155 mg/dL (74-106)
[2022-10-08 16:26] LABS: CREATININE 1.9 mg/dL (0.55-1.3); SGOT/AST 17 U/L (15-37); SGPT/ALT 14 U/L (13-61)
[2022-10-08 16:27] LABS: TOT PROT 8.5 g/dl (6.4-8.2)
[2022-10-08 16:28] LABS: BILIRUBIN,TOTAL 0.4 mg/dL (0.2-1)
[2022-10-08 16:29] LABS: ALK PHOS 101 U/L (45-117)
[2022-10-08] MEDS ORDERED: SODIUM CHLORIDE 500 ML IV STA (18:02)
[2022-10-08 20:40] LABS: EPI CELLS 30 /uL (0-25.1); HYALINE CASTS 3 /uL (0-3.1); PH,URINE 5.5 (5.0-8.0); URINE APPEARANCE CLEAR; URINE BACTERIA 4 /uL (0-1359); URINE BILIRUBIN NEGATIVE (NEGATIVE); URINE COLOR YELLOW; URINE GLUCOSE (UA) NEGATIVE (NEGATIVE); URINE KETONE NEGATIVE (NEGATIVE); URINE LEUK ESTERASE NEGATIVE (NEGATIVE); URINE NITRITE NEGATIVE (NEGATIVE); URINE PROTEIN 3+ (NEGATIVE); URINE RBC 132 /uL (0-23.9); URINE UROBILINOGEN 0.2 mg/dL (0.2-1.0); URINE WBC 54 /uL (0-25.8)
[2022-10-08] MEDS ORDERED: ACETAMINOPHEN 1000 MG/100 ML BAG IVPB PRN (20:41)
[2022-10-08] MEDS: INSULIN SLIDING SCALE (NOVOLOG) 1 VIAL SQ SCH (23:54)
[2022-10-08] MEDS: SODIUM CHLORIDE 1,000 ML IV SCH (23:55)
[2022-10-09] MEDS ORDERED: CYCLOBENZAPRINE HCL 10 MG TABLET (FP) PO PRN (01:07)
[2022-10-09] MEDS: DOCUSATE SODIUM 100 MG CAPSULE (FP) PO PRN (01:21)
[2022-10-09] MEDS: ERTAPENEM SODIUM 1 GM in SODIUM CHLORIDE 50 ML IVPB SCH ×2 (01:26→09:01)
[2022-10-09] MEDS: INSULIN SLIDING SCALE (NOVOLOG) 1 VIAL SQ SCH ×4 (06:10→22:44)
[2022-10-09 08:19] LABS: BASO % 0.6 % (0-2.0); EOS % 3.2 % (0-4.5); HEMATOCRIT 29.7 % (32.4-45.2); HEMOGLOBIN 10.5 GM/dL (10.7-15.3); LYMPH % 28.2 % (8-40); MCH 32.3 pg (25.7-33.7); MCHC 35.2 g/dl (32.0-36.0); MEAN CELL VOLUME 91.8 fl (80-96); MEAN PLT VOLUME 9.7 fl (7.5-11.1); MONO % 7.7 % (3.8-10.2); NEUT % 60.3 % (42.8-82.8); PLATELET COUNT 211 10^3/uL (134-434); RBC 3.24 M/mm3 (3.60-5.2); RDW 13.5 % (11.6-15.6); WHITE BLOOD COUNT 7.6 K/mm3 (4.0-10.0)
[2022-10-09] MEDS ORDERED: KETOROLAC TROMETHAMINE 30 MG/1 ML VIAL IVPUSH ONE (11:33)
[2022-10-09] MEDS ORDERED: ACETAMINOPHEN 325 MG TABLET (FP) PO PRN (20:35)
[2022-10-09] MEDS: SODIUM CHLORIDE 1,000 ML IV SCH (22:27)
[2022-10-10] MEDS: SODIUM CHLORIDE 1,000 ML IV SCH ×2 (06:21→23:53)
[2022-10-10] MEDS: INSULIN SLIDING SCALE (NOVOLOG) 1 VIAL SQ SCH ×4 (06:22→21:09)
[2022-10-10] MEDS: ERTAPENEM SODIUM 1 GM in SODIUM CHLORIDE 50 ML IVPB SCH (09:51)
[2022-10-10] MEDS ORDERED: INSULIN (NOVOLOG) ASPART 100 UNITS/ML 10ML VIAL ONE ×4 (11:42→17:02)
[2022-10-10 13:20] LABS: CALCIUM 8.5 mg/dL (8.5-10.1)
[2022-10-10 13:21] LABS: ALBUMIN 2.4 g/dl (3.4-5.0)
[2022-10-10 13:24] LABS: CREATININE 1.5 mg/dL (0.55-1.3)
[2022-10-10 13:25] LABS: BILIRUBIN,TOTAL 0.2 mg/dL (0.2-1)
[2022-10-10 13:26] LABS: TOT PROT 7.8 g/dl (6.4-8.2)
[2022-10-10 14:23] VITALS: BMI 36.3
[2022-10-10] MEDS: COLLAGENASE CLOSTRIDIUM HIST. 30 GRAMS TUBE TP SCH (17:18)
[2022-10-10] MEDS: DOCUSATE SODIUM 100 MG CAPSULE (FP) PO PRN (21:56)
[2022-10-11] MEDS: INSULIN SLIDING SCALE (NOVOLOG) 1 VIAL SQ SCH ×2 (06:00→11:47)
[2022-10-11] MEDS ORDERED: INSULIN (LEVEMIR) 100 UNITS/ML UNITS SQ SCH ×2 (07:00→22:00)
[2022-10-11 08:27] VITALS: BP 158/80; PULSE 79; RESP 18; TEMP 97.8
[2022-10-11 09:49] LABS: HEMATOCRIT 31.5 % (32.4-45.2); HEMOGLOBIN 10.9 GM/dL (10.7-15.3); MCH 31.5 pg (25.7-33.7); MCHC 34.7 g/dl (32.0-36.0); MEAN CELL VOLUME 90.9 fl (80-96); MEAN PLT VOLUME 9.6 fl (7.5-11.1); PLATELET COUNT 239 10^3/uL (134-434); RBC 3.47 M/mm3 (3.60-5.2); RDW 13.4 % (11.6-15.6); WHITE BLOOD COUNT 5.9 K/mm3 (4.0-10.0)
[2022-10-11] MEDS: ERTAPENEM SODIUM 1 GM in SODIUM CHLORIDE 50 ML IVPB SCH (09:55)
[2022-10-11 09:56] LABS: BLOOD UREA NITROGEN 27.7 mg/dL (7-18); CALCIUM 8.5 mg/dL (8.5-10.1)
[2022-10-11] MEDS: COLLAGENASE CLOSTRIDIUM HIST. 30 GRAMS TUBE TP SCH (09:56)
[2022-10-11 09:59] LABS: CREATININE 1.3 mg/dL (0.55-1.3)
[2022-10-11] MEDS ORDERED: INSULIN (NOVOLOG) ASPART 100 UNITS/ML 10ML VIAL ONE (11:41)
== END 2022-10-11 15:11 | disposition home or self-care (01) | DRG 344 ==
LOC: JER 13:20 → JERBED 17:58 → J7W 22:57 → OBSVTOIN 10-10 10:53 → J7W 10-10 15:10
PROVIDERS: ADMIT Internal Medicine; ATTEND Family Medicine
DX: E11.69 Type 2 diabetes mellitus with other specified complication (principal); M86.672 Other chronic osteomyelitis, left ankle and foot; E11.621 Type 2 diabetes mellitus with foot ulcer; L97.528 Non-pressure chronic ulcer of other part of left foot with other specified severity; N17.9 Acute kidney failure, unspecified; R62.7 Adult failure to thrive; Z68.36 Body mass index [BMI] 36.0-36.9, adult; M54.2 Cervicalgia; I12.9 Hypertensive chronic kidney disease with stage 1 through stage 4 chronic kidney disease, or unspecified chronic kidney disease; E11.22 Type 2 diabetes mellitus with diabetic chronic kidney disease; N18.9 Chronic kidney disease, unspecified; R91.1 Solitary pulmonary nodule; M79.603 Pain in arm, unspecified; E87.5 Hyperkalemia; E11.65 Type 2 diabetes mellitus with hyperglycemia; E11.319 Type 2 diabetes mellitus with unspecified diabetic retinopathy without macular edema; E66.9 Obesity, unspecified; M79.89 Other specified soft tissue disorders; Z89.422 Acquired absence of other left toe(s); Z89.421 Acquired absence of other right toe(s)
CPT/HCPCS: 0241U-QW; 36415; 70450-TC; 70490-TC; 71045-TC-FY; 71250-TC; 80048; 80053; 81003; 82550; 82553; 82803; 82962; 83540; 83550; 83605; 85025; 85027; 85610; 85730; 86850; 86900; 86901; 87040; 87086; 93005; 93010; 93971; 99285-25; G0378

== ENCOUNTER 2022-10-22 11:42 | Inpatient (IN) | payer OTHER ==
[2022-10-22] MEDS ORDERED: ACETAMINOPHEN 1000 MG/100 ML BAG IVPB ONE (12:48)
[2022-10-22] MEDS ORDERED: SODIUM CHLORIDE 500 ML IV STA ×2 (12:50→15:19)
[2022-10-22 13:40] LABS: BASO % 0.4 % (0-2.0); EOS % 1.1 % (0-4.5); HEMOGLOBIN 11.5 GM/dL (10.7-15.3); LYMPH % 10.4 % (8-40); MCH 30.5 pg (25.7-33.7); MCHC 33.8 g/dl (32.0-36.0); MEAN CELL VOLUME 90.3 fl (80-96); MEAN PLT VOLUME 8.3 fl (7.5-11.1); MONO % 5.6 % (3.8-10.2); NEUT % 82.5 % (42.8-82.8); PLATELET COUNT 221 10^3/uL (134-434); RBC 3.77 M/mm3 (3.60-5.2); RDW 13.7 % (11.6-15.6); WHITE BLOOD COUNT 10.3 K/mm3 (4.0-10.0)
[2022-10-22 13:46] LABS: INR 1.09 (0.83-1.09); PROTHROMBIN TIME (PATIENT) 12.6 SEC (9.7-13.0)
[2022-10-22 13:49] LABS: ACTIVATED PTT 33.9 SECONDS (25.2-36.5)
[2022-10-22 14:11] LABS: POTASSIUM 4.5 mmol/L (3.5-5.1)
[2022-10-22 14:13] LABS: CALCIUM 9.2 mg/dL (8.5-10.1)
[2022-10-22 14:15] LABS: ALBUMIN 2.7 g/dl (3.4-5.0); BLOOD UREA NITROGEN 30.7 mg/dL (7-18); MAGNESIUM 1.9 mg/dL (1.8-2.4)
[2022-10-22 14:18] LABS: CREATININE 1.5 mg/dL (0.55-1.3)
[2022-10-22 14:19] LABS: BILIRUBIN,TOTAL 0.5 mg/dL (0.2-1); TOT PROT 8.3 g/dl (6.4-8.2)
[2022-10-22] MEDS ORDERED: CEFTRIAXONE 1 GM in DEXTROSE 5%-WATER - 100 ML IVPB ONE (16:12)
[2022-10-22] MEDS ORDERED: AZITHROMYCIN IVPB 500 MG in DEXTROSE 5%-WATER - 250 ML IVPB ONE (16:12)
[2022-10-22] MEDS ORDERED: CEFTRIAXONE 1 GM/50 ML BAG ONE (16:43)
[2022-10-22] MEDS ORDERED: AZITHROMYCIN IVPB 500 MG/250 ML BAG IVPB ONE (16:43)
[2022-10-22] MEDS ORDERED: amLODIPine BESYLATE 5 MG TABLET (FP) PO ONE (17:28)
[2022-10-22] MEDS ORDERED: SODIUM CHLORIDE 0.45% 1,000 ML IV SCH (17:30)
[2022-10-22] MEDS ORDERED: amLODIPine BESYLATE 5 MG TABLET (FP) ONE (19:42)
[2022-10-22] MEDS: INSULIN SLIDING SCALE (NOVOLOG) 1 VIAL SQ SCH (22:32)
[2022-10-22] MEDS: INSULIN (LEVEMIR) 100 UNITS/ML UNITS SQ SCH (22:36)
[2022-10-22] MEDS ORDERED: INSULIN (LEVEMIR) 100 UNITS/ML UNITS SQ ONE (22:36)
[2022-10-22] MEDS: ACETAMINOPHEN 325 MG TABLET (FP) PO PRN (22:38)
[2022-10-23] MEDS ORDERED: ACETAMINOPHEN 1000 MG/100 ML BAG IVPB ONE ×2 (04:30→21:27)
[2022-10-23] MEDS: INSULIN (LEVEMIR) 100 UNITS/ML UNITS SQ SCH ×2 (06:37→23:04)
[2022-10-23] MEDS: INSULIN SLIDING SCALE (NOVOLOG) 1 VIAL SQ SCH ×4 (06:37→23:04)
[2022-10-23 08:29] LABS: HEMATOCRIT 32.7 % (32.4-45.2); HEMOGLOBIN 11.1 GM/dL (10.7-15.3); MCH 30.6 pg (25.7-33.7); MCHC 33.9 g/dl (32.0-36.0); MEAN CELL VOLUME 90.2 fl (80-96); MEAN PLT VOLUME 9.1 fl (7.5-11.1); PLATELET COUNT 242 10^3/uL (134-434); RBC 3.62 M/mm3 (3.60-5.2); RDW 13.6 % (11.6-15.6); WHITE BLOOD COUNT 11.3 K/mm3 (4.0-10.0)
[2022-10-23] MEDS: oxyCODONE HCL 5 MG TABLET PO PRN ×2 (09:52→17:52)
[2022-10-23] MEDS: ASPIRIN COATED 81 MG TABLET.EC PO SCH (09:52)
[2022-10-23 11:13] LABS: ALBUMIN 2.6 g/dl (3.4-5.0); BILIRUBIN,TOTAL 0.6 mg/dL (0.2-1); BLOOD UREA NITROGEN 28.6 mg/dL (7-18); CALCIUM 8.6 mg/dL (8.5-10.1); CREATININE 1.5 mg/dL (0.55-1.3); POTASSIUM 4.6 mmol/L (3.5-5.1); TOT PROT 7.9 g/dl (6.4-8.2)
[2022-10-23] MEDS ORDERED: INSULIN (NOVOLOG) ASPART 100 UNITS/ML 10ML VIAL ONE ×3 (11:58→23:01)
[2022-10-23] MEDS: CYCLOBENZAPRINE HCL 10 MG TABLET (FP) PO PRN ×2 (12:05→23:06)
[2022-10-23] MEDS: amLODIPine BESYLATE 5 MG TABLET (FP) PO SCH (12:06)
[2022-10-23] MEDS: ACETAMINOPHEN 325 MG TABLET (FP) PO PRN (14:23)
[2022-10-23] MEDS ORDERED: VANCOMYCIN/WATER 1,250 MG/250 ML BAG (RESTRICTED TO ID ONLY) IVPB ONE (15:15)
[2022-10-23] MEDS: PIPERACILLIN/TAZOB 3.375 GM 3.375 GM in DEXTROSE 5%-WATER - 50 ML IVPB SCH (17:51)
[2022-10-23 22:04] LABS: EPI CELLS >36 /uL (0-25.1); HYALINE CASTS 3 /uL (0-3.1); URINE APPEARANCE CLOUDY; URINE BACTERIA 13 /uL (0-1359); URINE BILIRUBIN NEGATIVE (NEGATIVE); URINE COLOR DK YELLOW; URINE GLUCOSE (UA) 1+ (NEGATIVE); URINE KETONE TRACE (NEGATIVE); URINE LEUK ESTERASE NEGATIVE (NEGATIVE); URINE NITRITE NEGATIVE (NEGATIVE); URINE PROTEIN 4+ (NEGATIVE); URINE RBC 28 /uL (0-23.9); URINE UROBILINOGEN 0.2 mg/dL (0.2-1.0)
[2022-10-23 22:15] LABS: COCAINE, UR NEGATIVE (NEGATIVE); METHADONE, UR NEGATIVE (NEGATIVE); OPIATES, URI NEGATIVE (NEGATIVE); URINE BARBITURATES NEGATIVE (NEGATIVE); URINE BENZODIAZEPINES NEGATIVE (NEGATIVE)
[2022-10-23 22:17] LABS: PHENCYCLIDINE,URINE NEGATIVE (NEGATIVE); URINE AMPHETAMINES NEGATIVE (NEGATIVE)
[2022-10-23] MEDS: POLYETHYLENE GLYCOL (HEALTHYLAX) 3350 17 GM PACKET PO SCH (23:06)
[2022-10-24] MEDS: PIPERACILLIN/TAZOB 3.375 GM 3.375 GM in DEXTROSE 5%-WATER - 50 ML IVPB SCH ×3 (03:35→17:55)
[2022-10-24] MEDS: INSULIN (LEVEMIR) 100 UNITS/ML UNITS SQ SCH ×2 (07:01→22:11)
[2022-10-24] MEDS ORDERED: INSULIN (NOVOLOG) ASPART 100 UNITS/ML 10ML VIAL ONE ×3 (07:02→22:05)
[2022-10-24] MEDS: INSULIN SLIDING SCALE (NOVOLOG) 1 VIAL SQ SCH ×4 (07:03→22:10)
[2022-10-24 08:14] LABS: POTASSIUM 4.5 mmol/L (3.5-5.1)
[2022-10-24 08:17] LABS: CALCIUM 8.6 mg/dL (8.5-10.1)
[2022-10-24 08:18] LABS: ALBUMIN 2.4 g/dl (3.4-5.0)
[2022-10-24 08:22] LABS: BILIRUBIN,TOTAL 0.8 mg/dL (0.2-1); CREATININE 2.4 mg/dL (0.55-1.3); TOT PROT 7.6 g/dl (6.4-8.2)
[2022-10-24] MEDS: amLODIPine BESYLATE 5 MG TABLET (FP) PO SCH (09:44)
[2022-10-24] MEDS: POLYETHYLENE GLYCOL (HEALTHYLAX) 3350 17 GM PACKET PO SCH ×2 (09:45→22:12)
[2022-10-24] MEDS: ASPIRIN COATED 81 MG TABLET.EC PO SCH (09:45)
[2022-10-24] MEDS: ACETAMINOPHEN 325 MG TABLET (FP) PO PRN ×2 (09:45→19:55)
[2022-10-24] MEDS: SODIUM CHLORIDE 1,000 ML IV SCH (11:43)
[2022-10-24 13:06] LABS: BASO % 0.7 % (0-2.0); EOS % 2.5 % (0-4.5); HEMOGLOBIN 9.9 GM/dL (10.7-15.3); LYMPH % 11.7 % (8-40); MCH 30.9 pg (25.7-33.7); MCHC 34.2 g/dl (32.0-36.0); MEAN CELL VOLUME 90.6 fl (80-96); MEAN PLT VOLUME 8.5 fl (7.5-11.1); MONO % 5.8 % (3.8-10.2); NEUT % 79.3 % (42.8-82.8); PLATELET COUNT 182 10^3/uL (134-434); RDW 13.6 % (11.6-15.6); WHITE BLOOD COUNT 9.8 K/mm3 (4.0-10.0)
[2022-10-24] MEDS: BACITRACIN ZINC 15 GM TUBE TOPICAL OINTMENT TP SCH (14:05)
[2022-10-24] MEDS ORDERED: DAPTOMYCIN 600 MG in SODIUM CHLORIDE 50 ML IVPB ONE (15:28)
[2022-10-24] MEDS: ALBUTEROL SO4 2.5/IPRATROPIUM 0.5 INH SOL 3 ML VIAL.NEB. NEB SCH ×2 (15:40→20:26)
[2022-10-24] MEDS: CYCLOBENZAPRINE HCL 10 MG TABLET (FP) PO PRN (22:10)
[2022-10-25] MEDS: PIPERACILLIN/TAZOB 3.375 GM 3.375 GM in DEXTROSE 5%-WATER - 50 ML IVPB SCH ×3 (02:31→17:29)
[2022-10-25] MEDS: INSULIN SLIDING SCALE (NOVOLOG) 1 VIAL SQ SCH ×4 (06:24→23:09)
[2022-10-25] MEDS ORDERED: INSULIN (LEVEMIR) 100 UNITS/ML UNITS SQ ONE (06:26)
[2022-10-25] MEDS: INSULIN (LEVEMIR) 100 UNITS/ML UNITS SQ SCH ×2 (06:26→23:32)
[2022-10-25] MEDS: ALBUTEROL SO4 2.5/IPRATROPIUM 0.5 INH SOL 3 ML VIAL.NEB. NEB SCH ×4 (07:15→20:29)
[2022-10-25 07:52] LABS: BASO % 0.6 % (0-2.0); EOS % 4.2 % (0-4.5); HEMATOCRIT 29.5 % (32.4-45.2); HEMOGLOBIN 10.3 GM/dL (10.7-15.3); LYMPH % 12.3 % (8-40); MCH 31.5 pg (25.7-33.7); MCHC 34.9 g/dl (32.0-36.0); MEAN CELL VOLUME 90.1 fl (80-96); MEAN PLT VOLUME 9.5 fl (7.5-11.1); NEUT % 77.9 % (42.8-82.8); PLATELET COUNT 170 10^3/uL (134-434); RBC 3.27 M/mm3 (3.60-5.2); RDW 13.8 % (11.6-15.6); WHITE BLOOD COUNT 9.2 K/mm3 (4.0-10.0)
[2022-10-25 08:08] LABS: POTASSIUM 4.6 mmol/L (3.5-5.1)
[2022-10-25 08:20] LABS: ALBUMIN 2.2 g/dl (3.4-5.0); BLOOD UREA NITROGEN 38.8 mg/dL (7-18); CALCIUM 8.6 mg/dL (8.5-10.1)
[2022-10-25 08:23] LABS: CREATININE 2.4 mg/dL (0.55-1.3)
[2022-10-25 08:25] LABS: BILIRUBIN,TOTAL 0.6 mg/dL (0.2-1); TOT PROT 7.4 g/dl (6.4-8.2)
[2022-10-25] MEDS: ACETAMINOPHEN 325 MG TABLET (FP) PO PRN (09:18)
[2022-10-25] MEDS: ASPIRIN COATED 81 MG TABLET.EC PO SCH (09:19)
[2022-10-25] MEDS: POLYETHYLENE GLYCOL (HEALTHYLAX) 3350 17 GM PACKET PO SCH ×2 (09:19→23:08)
[2022-10-25] MEDS: amLODIPine BESYLATE 5 MG TABLET (FP) PO SCH (09:19)
[2022-10-25] MEDS: BACITRACIN ZINC 15 GM TUBE TOPICAL OINTMENT TP SCH (09:21)
[2022-10-25] MEDS: SODIUM CHLORIDE 1,000 ML IV SCH (12:03)
[2022-10-25] MEDS: SODIUM CHLORIDE 0.45% 1,000 ML IV SCH (17:28)
[2022-10-25] MEDS: oxyCODONE HCL 5 MG TABLET PO PRN (21:00)
[2022-10-26] MEDS: PIPERACILLIN/TAZOB 3.375 GM 3.375 GM in DEXTROSE 5%-WATER - 50 ML IVPB SCH ×3 (02:03→17:30)
[2022-10-26] MEDS: oxyCODONE HCL 5 MG TABLET PO PRN ×3 (04:34→21:19)
[2022-10-26] MEDS: INSULIN SLIDING SCALE (NOVOLOG) 1 VIAL SQ SCH ×4 (06:23→22:50)
[2022-10-26] MEDS: INSULIN (LEVEMIR) 100 UNITS/ML UNITS SQ SCH ×2 (06:25→22:50)
[2022-10-26 07:31] LABS: POTASSIUM 4.7 mmol/L (3.5-5.1)
[2022-10-26 07:38] LABS: CALCIUM 8.5 mg/dL (8.5-10.1)
[2022-10-26 07:39] LABS: ALBUMIN 2.2 g/dl (3.4-5.0); BLOOD UREA NITROGEN 36.8 mg/dL (7-18)
[2022-10-26 07:41] LABS: CREATININE 2.2 mg/dL (0.55-1.3)
[2022-10-26 07:44] LABS: BILIRUBIN,TOTAL 0.4 mg/dL (0.2-1); TOT PROT 7.3 g/dl (6.4-8.2)
[2022-10-26] MEDS: ALBUTEROL SO4 2.5/IPRATROPIUM 0.5 INH SOL 3 ML VIAL.NEB. NEB SCH ×4 (07:49→20:40)
[2022-10-26] MEDS: ASPIRIN COATED 81 MG TABLET.EC PO SCH (09:26)
[2022-10-26] MEDS: POLYETHYLENE GLYCOL (HEALTHYLAX) 3350 17 GM PACKET PO SCH ×2 (09:26→22:49)
[2022-10-26] MEDS: amLODIPine BESYLATE 5 MG TABLET (FP) PO SCH (09:26)
[2022-10-26] MEDS: BACITRACIN ZINC 15 GM TUBE TOPICAL OINTMENT TP SCH (09:28)
[2022-10-26 15:42] LABS: VENOUS BASE EXCESS -1.9 mmol/L (-2-2); VENOUS O2 SATURATION 93.3 % (70-80); VENOUS PCO2 43.4 mmHg (38-52); VENOUS PH 7.356 (7.310-7.410)
[2022-10-26] MEDS: SODIUM CHLORIDE 0.45% 1,000 ML IV SCH (17:34)
[2022-10-26] MEDS: ACETAMINOPHEN 325 MG TABLET (FP) PO PRN (21:20)
[2022-10-27] MEDS: PIPERACILLIN/TAZOB 3.375 GM 3.375 GM in DEXTROSE 5%-WATER - 50 ML IVPB SCH ×3 (05:21→18:07)
[2022-10-27] MEDS: ACETAMINOPHEN 325 MG TABLET (FP) PO PRN ×2 (05:25→21:59)
[2022-10-27] MEDS: oxyCODONE HCL 5 MG TABLET PO PRN (05:26)
[2022-10-27] MEDS: INSULIN SLIDING SCALE (NOVOLOG) 1 VIAL SQ SCH ×4 (06:49→21:58)
[2022-10-27] MEDS: INSULIN (LEVEMIR) 100 UNITS/ML UNITS SQ SCH ×2 (06:54→22:05)
[2022-10-27] MEDS: ALBUTEROL SO4 2.5/IPRATROPIUM 0.5 INH SOL 3 ML VIAL.NEB. NEB SCH ×4 (08:41→20:42)
[2022-10-27] MEDS: POLYETHYLENE GLYCOL (HEALTHYLAX) 3350 17 GM PACKET PO SCH ×2 (10:42→21:59)
[2022-10-27] MEDS ORDERED: INSULIN (NOVOLOG) ASPART 100 UNITS/ML 10ML VIAL ONE ×3 (10:43→17:41)
[2022-10-27] MEDS: ASPIRIN COATED 81 MG TABLET.EC PO SCH (10:50)
[2022-10-27] MEDS: amLODIPine BESYLATE 5 MG TABLET (FP) PO SCH (10:50)
[2022-10-27] MEDS: BACITRACIN ZINC 15 GM TUBE TOPICAL OINTMENT TP SCH (11:46)
[2022-10-27] MEDS: COLLAGENASE CLOSTRIDIUM HIST. 30 GRAMS TUBE TP SCH (14:52)
[2022-10-27] MEDS: SODIUM CHLORIDE 0.45% 1,000 ML IV SCH (18:05)
[2022-10-27] MEDS ORDERED: INSULIN (LEVEMIR) 100 UNITS/ML UNITS SQ ONE (22:05)
[2022-10-28] MEDS: PIPERACILLIN/TAZOB 3.375 GM 3.375 GM in DEXTROSE 5%-WATER - 50 ML IVPB SCH ×3 (03:23→18:10)
[2022-10-28] MEDS ORDERED: INSULIN (LEVEMIR) 100 UNITS/ML UNITS SQ ONE ×2 (05:39→21:18)
[2022-10-28] MEDS ORDERED: INSULIN (NOVOLOG) ASPART 100 UNITS/ML 10ML VIAL ONE ×4 (05:40→21:36)
[2022-10-28] MEDS: INSULIN (LEVEMIR) 100 UNITS/ML UNITS SQ SCH ×2 (06:14→21:37)
[2022-10-28] MEDS: INSULIN SLIDING SCALE (NOVOLOG) 1 VIAL SQ SCH ×4 (06:15→21:37)
[2022-10-28] MEDS: ALBUTEROL SO4 2.5/IPRATROPIUM 0.5 INH SOL 3 ML VIAL.NEB. NEB SCH ×4 (07:35→20:45)
[2022-10-28] MEDS: amLODIPine BESYLATE 5 MG TABLET (FP) PO SCH (10:05)
[2022-10-28] MEDS: POLYETHYLENE GLYCOL (HEALTHYLAX) 3350 17 GM PACKET PO SCH ×2 (10:05→21:37)
[2022-10-28] MEDS: ASPIRIN COATED 81 MG TABLET.EC PO SCH (10:05)
[2022-10-28] MEDS: SODIUM CHLORIDE 0.45% 1,000 ML IV SCH ×2 (11:07→18:07)
[2022-10-28] MEDS: ACETAMINOPHEN 325 MG TABLET (FP) PO PRN ×2 (11:10→19:38)
[2022-10-28] MEDS: COLLAGENASE CLOSTRIDIUM HIST. 30 GRAMS TUBE TP SCH (11:11)
[2022-10-28] MEDS: BACITRACIN ZINC 15 GM TUBE TOPICAL OINTMENT TP SCH (11:11)
[2022-10-29] MEDS: PIPERACILLIN/TAZOB 3.375 GM 3.375 GM in DEXTROSE 5%-WATER - 50 ML IVPB SCH ×3 (03:18→17:22)
[2022-10-29] MEDS: ACETAMINOPHEN 325 MG TABLET (FP) PO PRN ×3 (03:19→22:28)
[2022-10-29] MEDS ORDERED: INSULIN (NOVOLOG) ASPART 100 UNITS/ML 10ML VIAL ONE ×4 (06:32→22:36)
[2022-10-29] MEDS: INSULIN (LEVEMIR) 100 UNITS/ML UNITS SQ SCH ×2 (06:38→22:32)
[2022-10-29] MEDS: INSULIN SLIDING SCALE (NOVOLOG) 1 VIAL SQ SCH ×4 (06:39→22:32)
[2022-10-29] MEDS: ALBUTEROL SO4 2.5/IPRATROPIUM 0.5 INH SOL 3 ML VIAL.NEB. NEB SCH ×4 (07:25→20:36)
[2022-10-29 07:30] LABS: BASO % 1.1 % (0-2.0); EOS % 3.5 % (0-4.5); HEMATOCRIT 29.1 % (32.4-45.2); LYMPH % 18.5 % (8-40); MCHC 34.4 g/dl (32.0-36.0); MEAN PLT VOLUME 9.7 fl (7.5-11.1); NEUT % 68.9 % (42.8-82.8); PLATELET COUNT 263 10^3/uL (134-434); RBC 3.23 M/mm3 (3.60-5.2); RDW 13.4 % (11.6-15.6); WHITE BLOOD COUNT 9.6 K/mm3 (4.0-10.0)
[2022-10-29 07:43] LABS: ALBUMIN 2.3 g/dl (3.4-5.0); BLOOD UREA NITROGEN 27.3 mg/dL (7-18)
[2022-10-29 07:46] LABS: CREATININE 1.9 mg/dL (0.55-1.3)
[2022-10-29 07:48] LABS: BILIRUBIN,TOTAL 0.4 mg/dL (0.2-1); TOT PROT 7.8 g/dl (6.4-8.2)
[2022-10-29] MEDS: amLODIPine BESYLATE 5 MG TABLET (FP) PO SCH (10:44)
[2022-10-29] MEDS: ASPIRIN COATED 81 MG TABLET.EC PO SCH (10:44)
[2022-10-29] MEDS: COLLAGENASE CLOSTRIDIUM HIST. 30 GRAMS TUBE TP SCH (10:45)
[2022-10-29] MEDS: POLYETHYLENE GLYCOL (HEALTHYLAX) 3350 17 GM PACKET PO SCH ×2 (10:45→22:32)
[2022-10-29] MEDS: BACITRACIN ZINC 15 GM TUBE TOPICAL OINTMENT TP SCH (10:45)
[2022-10-29] MEDS: SODIUM CHLORIDE 0.45% 1,000 ML IV SCH (17:23)
[2022-10-30] MEDS: PIPERACILLIN/TAZOB 3.375 GM 3.375 GM in DEXTROSE 5%-WATER - 50 ML IVPB SCH ×3 (03:00→17:43)
[2022-10-30] MEDS: INSULIN SLIDING SCALE (NOVOLOG) 1 VIAL SQ SCH ×4 (06:14→21:39)
[2022-10-30 07:27] LABS: POTASSIUM 4.8 mmol/L (3.5-5.1)
[2022-10-30 07:31] LABS: CALCIUM 9.1 mg/dL (8.5-10.1)
[2022-10-30 07:32] LABS: ALBUMIN 2.4 g/dl (3.4-5.0); BLOOD UREA NITROGEN 25.2 mg/dL (7-18)
[2022-10-30 07:35] LABS: CREATININE 1.9 mg/dL (0.55-1.3)
[2022-10-30 07:36] LABS: BILIRUBIN,TOTAL 0.4 mg/dL (0.2-1); TOT PROT 8.2 g/dl (6.4-8.2)
[2022-10-30] MEDS: ALBUTEROL SO4 2.5/IPRATROPIUM 0.5 INH SOL 3 ML VIAL.NEB. NEB SCH ×3 (07:50→20:29)
[2022-10-30] MEDS: ASPIRIN COATED 81 MG TABLET.EC PO SCH (09:59)
[2022-10-30] MEDS: amLODIPine BESYLATE 5 MG TABLET (FP) PO SCH (09:59)
[2022-10-30] MEDS: COLLAGENASE CLOSTRIDIUM HIST. 30 GRAMS TUBE TP SCH (10:02)
[2022-10-30] MEDS: BACITRACIN ZINC 15 GM TUBE TOPICAL OINTMENT TP SCH (10:03)
[2022-10-30] MEDS: POLYETHYLENE GLYCOL (HEALTHYLAX) 3350 17 GM PACKET PO SCH ×2 (10:21→21:40)
[2022-10-30] MEDS ORDERED: INSULIN (NOVOLOG) ASPART 100 UNITS/ML 10ML VIAL ONE ×3 (11:15→21:32)
[2022-10-30] MEDS: ACETAMINOPHEN 325 MG TABLET (FP) PO PRN (15:46)
[2022-10-30 16:36] VITALS: BMI 37.9
[2022-10-30] MEDS: SODIUM CHLORIDE 0.45% 1,000 ML IV SCH (17:44)
[2022-10-30] MEDS: INSULIN (LEVEMIR) 100 UNITS/ML UNITS SQ SCH (21:38)
[2022-10-31] MEDS: PIPERACILLIN/TAZOB 3.375 GM 3.375 GM in DEXTROSE 5%-WATER - 50 ML IVPB SCH ×2 (01:09→09:22)
[2022-10-31] MEDS: ACETAMINOPHEN 325 MG TABLET (FP) PO PRN (04:46)
[2022-10-31] MEDS ORDERED: INSULIN (NOVOLOG) ASPART 100 UNITS/ML 10ML VIAL ONE (06:18)
[2022-10-31] MEDS: INSULIN (LEVEMIR) 100 UNITS/ML UNITS SQ SCH (06:30)
[2022-10-31] MEDS: INSULIN SLIDING SCALE (NOVOLOG) 1 VIAL SQ SCH (06:31)
[2022-10-31] MEDS: ALBUTEROL SO4 2.5/IPRATROPIUM 0.5 INH SOL 3 ML VIAL.NEB. NEB SCH (07:30)
[2022-10-31] MEDS ORDERED: AMINO ACIDS/PROTEIN HYDROLYS 30 ML LIQUID.PKT PO SCH (08:00)
[2022-10-31] MEDS: amLODIPine BESYLATE 5 MG TABLET (FP) PO SCH (09:23)
[2022-10-31] MEDS: POLYETHYLENE GLYCOL (HEALTHYLAX) 3350 17 GM PACKET PO SCH (09:23)
[2022-10-31] MEDS: ASPIRIN COATED 81 MG TABLET.EC PO SCH (09:23)
[2022-10-31] MEDS: COLLAGENASE CLOSTRIDIUM HIST. 30 GRAMS TUBE TP SCH (09:24)
[2022-10-31] MEDS: BACITRACIN ZINC 15 GM TUBE TOPICAL OINTMENT TP SCH (09:24)
[2022-10-31] MEDS ORDERED: VITAMIN B COMP W-C 1 EA TABLET (NEPHRO-VITE) PO SCH (10:00)
[2022-10-31] MEDS ORDERED: ZINC SULFATE 220 MG CAPSULE (FP) PO SCH (10:00)
[2022-10-31 11:31] VITALS: BP 142/68; PULSE 95; RESP 18; TEMP 98.1
== END 2022-10-31 12:48 | disposition home or self-care (01) | DRG 204 ==
LOC: JER 11:42 → INTOOBSV 16:15 → UNDOADMOB 16:15 → JERBED 16:15 → J4W 21:23 → OBSVTOIN 10-24 09:36 → J4W 10-27 00:30
PROVIDERS: ADMIT Family Medicine; ATTEND Family Medicine
DX: R55 Syncope and collapse (principal); E11.621 Type 2 diabetes mellitus with foot ulcer; N17.9 Acute kidney failure, unspecified; L97.519 Non-pressure chronic ulcer of other part of right foot with unspecified severity; M84.422A Pathological fracture, left humerus, initial encounter for fracture; M86.60 Other chronic osteomyelitis, unspecified site; I13.10 Hypertensive heart and chronic kidney disease without heart failure, with stage 1 through stage 4 chronic kidney disease, or unspecified chronic kidney disease; E11.69 Type 2 diabetes mellitus with other specified complication; E66.9 Obesity, unspecified; E86.0 Dehydration; F17.210 Nicotine dependence, cigarettes, uncomplicated; J98.11 Atelectasis; N18.9 Chronic kidney disease, unspecified; Z68.38 Body mass index [BMI] 38.0-38.9, adult
CPT/HCPCS: 0241U-QW; 36415; 70450-TC; 70490-TC; 71045-TC-FY; 71250-TC; 72125-TC; 73030-TC-LT-FY; 73060-TC-LT-FY; 73200-TC-RT; 74176-TC; 80053; 80307; 81003; 82550; 82803; 82962; 83605; 83735; 84484; 85025; 85027; 85610; 85651; 85730; 86140; 87040; 87086; 87186; 93005; 93010; 94640; 97116-GP; 97162-GP; 99285-25; G0378; G0480; J0878